=== PATIENT | female | born 1985 | race Caucasian/White ===

== ENCOUNTER → 2018-06-19 09:06 | Outpatient (CLI) | payer OTHER, SELFPAY ==
[2018-06-19 09:35] LABS: Absolute Lymphocyte Count 1.69 X10^3/ul (0.83-4.51); Absolute Neutrophil Count 6.2 X10^3/uL (2.0-7.7); Basophil# 0.01 X10^3/uL; Basophil% 0.1 % (0-1); Eosinophil# 0.03 X10^3/uL; Eosinophils% 0.4 % (0-5); Hematocrit 38.9 % (37-47); Hemoglobin 13.3 g/dl (12.0-15.0); Lymphocyte # 1.69 X10^3/ul (4.0); Lymphocyte % 19.8 % (19-41); Mean Corp Hgb Conc 34.2 g/gl (32-36); Mean Corpuscular Hgb 29.8 pg (27.0-32.0); Mean Corpuscular Volume 87.2 fL (81-99); Mean Platelet Vol. 10.1 fl (6.2-12.0); Monocyte# 0.57 X10^3/uL; Monocyte% 6.7 % (0-10); Neutrophil # 6.22 X10^3/uL (2.7-7.7); Neutrophil % 72.9 % (47-70); Platelet Count 258 K/mm3 (150-450); RBC Distribution Width CV 12.9 % (11.6-14.6); RBC Distribution Width SD 40.1 fl (35.1-43.9); Red Blood Count 4.46 M/mm3 (4.2-5.4); White Blood Count 8.5 K/mm3 (4.4-11.0)
[2018-06-19 09:36] LABS: POSITIVE COUNT NO; POSITIVE DIFFERENTIAL NO; POSITIVE MORPHOLOGY NO
[2018-06-19 10:00] LABS: Glucose Challenge Gest 1H 50g 103 mg/dL (70-140)
[2018-06-19 10:53] LABS: HIV - WCH Non-Reactive (Nonreactive)
[2018-06-19 19:59] LABS: Chlamydia Trachomatis by PCR Negative (Negative); Neisserai gonorrhoeae by PCR Negative (Negative); Probe Check PASS; Sample Adequacy Control PASS; Specimen Processing Control PASS
[2018-06-21 04:13] LABS: Rapid Plasmin Reagin (RPR) NONREACTIVE (NONREACTIVE)
[2018-06-21 15:14] LABS: HEPATITIS B SURFACE AG Negative (Negative)
== END ==
PROVIDERS: Family Provider Family Medicine; PCP Family Medicine; Referring Provider Obstetrics & Gynecology; Visit Provider Obstetrics & Gynecology
DX: Z34.90 Encounter for supervision of normal pregnancy, unspecified, unspecified trimester (principal)
CPT/HCPCS: 36415; 82950; 85025; 86592; 86703; 86762; 86850; 86900; 87086; 87088; 87340; 87491; 87591

== ENCOUNTER → 2018-09-09 18:08 | Outpatient (CLI) | payer OTHER, SELFPAY ==
[2018-09-09 15:42] VITALS: BMI 37.0
== END ==
PROVIDERS: Family Provider Family Medicine; Referring Provider Obstetrics & Gynecology; Visit Provider Obstetrics & Gynecology
DX: R30.0 Dysuria (principal)
CPT/HCPCS: 87086; 87088

== ENCOUNTER → 2018-11-08 16:30 | Outpatient (CLI) | payer OTHER, SELFPAY ==
[2018-11-08 16:09] VITALS: BMI 37.0
[2018-11-08 17:19] LABS: Absolute Lymphocyte Count 1.61 X10^3/ul (0.83-4.51); Absolute Neutrophil Count 6.3 X10^3/uL (2.0-7.7); Basophil# 0.01 X10^3/uL; Basophil% 0.1 % (0-1); Eosinophil# 0.03 X10^3/uL; Eosinophils% 0.4 % (0-5); Hematocrit 36.5 % (37-47); Hemoglobin 12.1 g/dl (12.0-15.0); Lymphocyte # 1.61 X10^3/ul (4.0); Lymphocyte % 18.9 % (19-41); Mean Corp Hgb Conc 33.2 g/gl (32-36); Mean Corpuscular Volume 90.6 fL (81-99); Mean Platelet Vol. 10.4 fl (6.2-12.0); Monocyte# 0.54 X10^3/uL; Monocyte% 6.3 % (0-10); Neutrophil # 6.32 X10^3/uL (2.7-7.7); Neutrophil % 74.2 % (47-70); POSITIVE COUNT NO; POSITIVE DIFFERENTIAL NO; POSITIVE MORPHOLOGY NO; Platelet Count 236 K/mm3 (150-450); RBC Distribution Width CV 13.4 % (11.6-14.6); RBC Distribution Width SD 43.7 fl (35.1-43.9); Red Blood Count 4.03 M/mm3 (4.2-5.4); White Blood Count 8.5 K/mm3 (4.4-11.0)
[2018-11-08 17:26] LABS: Glucose Challenge Gest 1H 50g 175 mg/dL (70-140)
== END ==
PROVIDERS: Family Provider Family Medicine; Referring Provider Nurse Practitioner Women's Health; Visit Provider Nurse Practitioner Women's Health
DX: O23.40 Unspecified infection of urinary tract in pregnancy, unspecified trimester (principal); O09.899 Supervision of other high risk pregnancies, unspecified trimester; O09.90 Supervision of high risk pregnancy, unspecified, unspecified trimester; Z3A.00 Weeks of gestation of pregnancy not specified; Z67.91 Unspecified blood type, Rh negative
CPT/HCPCS: 36415; 82950; 85025; 86850; 86900; 87086; 87088

== ENCOUNTER → 2018-11-15 06:43 | Outpatient (CLI) | payer OTHER, SELFPAY ==
[2018-11-08 16:23] VITALS: BMI 37.0
[2018-11-15 08:25] LABS: Glucose GTT-Gestational 1 Hr 167 mg/dL (<190)
[2018-11-15 08:26] LABS: Glucose GTT-Gestation. Fasting 89 mg/dL (<105)
[2018-11-15 09:35] LABS: Glucose GTT-Gestational 2 Hr 170 mg/dL (<165)
[2018-11-15 10:41] LABS: Glucose GTT-Gestational 3 Hr 124 L (<145)
== END ==
PROVIDERS: Family Provider Family Medicine; Referring Provider Nurse Practitioner Women's Health; Visit Provider Nurse Practitioner Women's Health
DX: O99.810 Abnormal glucose complicating pregnancy (principal); Z3A.00 Weeks of gestation of pregnancy not specified
CPT/HCPCS: 36415; 82951; 82952

== ENCOUNTER → 2018-11-28 16:26 | Outpatient (CLI) | payer OTHER, SELFPAY ==
[2018-11-28 16:09] VITALS: BMI 37.0
[2018-11-28 16:51] LABS: ROM Internal Control Test YES-OK TO RESULT pt. (Internal QC); ROM Patient Test Negative (Negative); Record Kit Lot#, ROM+ J7836
== END ==
PROVIDERS: Family Provider Family Medicine; Referring Provider Nurse Practitioner Women's Health; Visit Provider Nurse Practitioner Women's Health
DX: O09.90 Supervision of high risk pregnancy, unspecified, unspecified trimester (principal); O99.280 Endocrine, nutritional and metabolic diseases complicating pregnancy, unspecified trimester; E86.9 Volume depletion, unspecified; Z3A.00 Weeks of gestation of pregnancy not specified
CPT/HCPCS: 84112; 87086; 87088

== ENCOUNTER 2018-12-06 17:10 | Outpatient (CLI) | payer OTHER, SELFPAY ==
[2018-12-06 16:43] VITALS: BMI 37.0
[2018-12-06 17:27] LABS: Absolute Lymphocyte Count 2.05 X10^3/ul (0.83-4.51); Basophil# 0.01 X10^3/uL; Basophil% 0.1 % (0-1); Eosinophil# 0.05 X10^3/uL; Eosinophils% 0.5 % (0-5); Hematocrit 35.7 % (37-47); Hemoglobin 12.2 g/dl (12.0-15.0); Lymphocyte # 2.05 X10^3/ul (4.0); Lymphocyte % 20.7 % (19-41); Mean Corp Hgb Conc 34.2 g/gl (32-36); Mean Corpuscular Hgb 29.9 pg (27.0-32.0); Mean Corpuscular Volume 87.5 fL (81-99); Mean Platelet Vol. 11.5 fl (6.2-12.0); Monocyte# 0.79 X10^3/uL; Neutrophil # 6.99 X10^3/uL (2.7-7.7); Neutrophil % 70.4 % (47-70); POSITIVE COUNT NO; POSITIVE DIFFERENTIAL NO; POSITIVE MORPHOLOGY NO; Platelet Count 225 K/mm3 (150-450); RBC Distribution Width SD 40.6 fl (35.1-43.9); Red Blood Count 4.08 M/mm3 (4.2-5.4); White Blood Count 9.9 K/mm3 (4.4-11.0)
[2018-12-06 17:58] LABS: ALB/GLOB Ratio 0.7 RATIO (0.9-2.4); AST(SGOT) 22 U/L (15-37); Alanine Aminotransfer ALT/SGPT 16 U/L (13-56); Albumin, Serum 2.7 g/dL (3.2-5.0); Alkaline Phosphatase 149 U/L (45-117); Anion Gap 10 (5-15); BUN 10 mg/dL (7-18); BUN/Creat Ratio 16.3 RATIO (10-20); Calcium,Total 8.9 mg/dL (8.5-10.1); Chloride 106 mmol/L (98-107); Creatinine, Serum 0.61 mg/dL (0.55-1.02); EST Glomerular Filtration Rate 118 mL/min (>60); Est Glom Filt Rate - Afr Amer 142 mL/min (>60); Globulin 4.1 g/dL (2.2-4.2); Glucose 82 mg/dL (74-106); LDH 187 U/L (84-246); Protein, Total 6.8 g/dL (6.4-8.2); Sodium Level 138 mmol/L (136-145)
[2018-12-06 18:31] VITALS: BMI 41.4
[2018-12-06 18:45] LABS: Protein, Urine (Random) 12.1 mg/dL (<11.9); Protein:Creat Ratio 153 mg/g CRE (0-200)
--- NOTE | 2018-12-08 08:59 | OB.TRI.PN_ITS ---
Progress Notes Date of Service: 12/06/18 Progress Note: Present with elevated blood pressures in the office labs were sent which were normal and negative and NST was reactive. Initial blood pressure was mildly elevated but all repeats were within normal limits and patient is asymptomatic heart tones 130s moderate variability reactive no decelerations [place]: No regular contractions Assessment and plan elevated blood pressures?normal labs and repeat blood pressures within normal limits reactive NST DC home frequency or precautions follow-up in the office as an outpatient Laboratory Studies: Laboratory Tests 12/06/18 12/06/18 12/06/18 Range/Units 18:06 17:17 17:17 WBC 9.9 (4.4-11.0) K/mm3 RBC 4.08 L (4.2-5.4) M/mm3 Hgb 12.2 (12.0-15.0) g/dl Hct 35.7 L (37-47) % MCV 87.5 (81-99) fL MCH 29.9 (27.0-32.0) pg MCHC 34.2 (32-36) g/gl RDW 13.0 (11.6-14.6) % RDW Differential 40.6 (35.1-43.9) fl Plt Count 225 (150-450) K/mm3 MPV 11.5 (6.2-12.0) fl Immature Gran % (Auto) 0.300 (0.0-0.9) % Neut % (Auto) 70.4 H (47-70) % Lymph % (Auto) 20.7 (19-41) % [place] % (Auto) 8.0 (0-10) % Eos % (Auto) 0.5 (0-5) % Baso % (Auto) 0.1 (0-1) % Absolute Neuts (auto) 7.0 (2.0-7.7) X10^3/uL Absolute Lymphs (auto) 2.05 (0.83-4.51) X10^3/ul Total Counted Not Reportable Sodium 138 (136-145) mmol/L Potassium 4.0 (3.5-5.1) mmol/L Chloride 106 (98-107) mmol/L Carbon Dioxide 22.0 (21.0-32.0) mmol/L Anion Gap 10 (5-15) BUN 10 (7-18) mg/dL Creatinine 0.61 (0.55-1.02) mg/dL Est GFR (MDRD) Af Amer 142 (>60) mL/min Est GFR (MDRD) Non-Af 118 (>60) mL/min BUN/Creatinine Ratio 16.3 (10-20) RATIO Glucose 82 (74-106) mg/dL Uric Acid 4.0 (2.6-6.0) mg/dL Calcium 8.9 (8.5-10.1) mg/dL Total Bilirubin 0.30 (0.20-1.00) mg/dL AST 22 (15-37) U/L ALT 16 (13-56) U/L Alkaline Phosphatase 149 H (45-117) U/L Lactate Dehydrogenase 187 (84-246) U/L Total Protein 6.8 (6.4-8.2) g/dL Albumin 2.7 L (3.2-5.0) g/dL Globulin 4.1 (2.2-4.2) g/dL Albumin/Globulin Ratio 0.7 L (0.9-2.4) RATIO U Random Total Protein 12.1 H (<11.9) mg/dL Urine Creatinine 79.30 (NO RANGE EST.) mg/dL Protein/Creatinin Ratio 153 (0-200) mg/g CRE
== END 2018-12-06 19:30 | disposition home or self-care (01) ==
LOC: LAB 17:12 → WPOUT 18:08 → WP 18:09
PROVIDERS: Family Provider Family Medicine; Referring Provider Obstetrics & Gynecology; Visit Provider Obstetrics & Gynecology
DX: O16.9 Unspecified maternal hypertension, unspecified trimester (principal); Z3A.00 Weeks of gestation of pregnancy not specified
CPT/HCPCS: 36415; 59025; 59050; 80053; 82570; 83615; 84156; 84550; 85025; 99218; G0378

== ENCOUNTER 2018-12-19 16:55 | Outpatient (CLI) | payer OTHER, SELFPAY ==
[2018-12-19 16:26] VITALS: BMI 42.6
[2018-12-19 17:19] VITALS: BMI 41.8
[2018-12-19 17:23] LABS: Protein:Creat Ratio 460 mg/g CRE (0-200)
[2018-12-19] MEDS: Betamethasone/Betamethasone 30 MG/5 ML Vial 12 MG IM (17:32)
[2018-12-19] MEDS: Acetaminophen 500 MG Tablet 1000 MG PO (17:36)
[2018-12-19 17:47] LABS: Hematocrit 34.7 % (37-47); Hemoglobin 11.7 g/dl (12.0-15.0); Mean Corp Hgb Conc 33.7 g/gl (32-36); Mean Corpuscular Hgb 29.6 pg (27.0-32.0); Mean Corpuscular Volume 87.8 fL (81-99); Mean Platelet Vol. 11.7 fl (6.2-12.0); Platelet Count 203 K/mm3 (150-450); RBC Distribution Width CV 13.5 % (11.6-14.6); RBC Distribution Width SD 43.3 fl (35.1-43.9); Red Blood Count 3.95 M/mm3 (4.2-5.4); White Blood Count 8.8 K/mm3 (4.4-11.0)
[2018-12-19 17:48] LABS: Scan Indicated on CBC? Y/N NO
[2018-12-19 18:34] LABS: AST(SGOT) 22 U/L (15-37); Alanine Aminotransfer ALT/SGPT 18 U/L (13-56); Creatinine, Serum 0.61 mg/dL (0.55-1.02); EST Glomerular Filtration Rate 118 mL/min (>60); Est Glom Filt Rate - Afr Amer 143 mL/min (>60); Estimated Creatinine Clearance 101.81 ml/min; Uric Acid 4.5 mg/dL (2.6-6.0)
--- NOTE | 2018-12-19 18:36 | US_ITS ---
STUDY: SECOND AND THIRD TRIMESTER OBSTETRICAL ULTRASOUND - LIMITED REASON FOR EXAM: Female, 33 years old. Growth. Hypertension. LGA around 2 weeks. LMP: April 20, 2018. PRIOR ULTRASOUND: None. TECHNIQUE: Transabdominal TECHNICAL QUALITY: Adequate. FINDINGS: There is a single intrauterine fetus. The fetus is in a cephalic presentation. There is demonstrated cardiac activity with a heart rate of 165 bpm. There is a normal amniotic fluid volume. The largest amniotic fluid pocket measures 4.10 cm. The amniotic fluid index (SUKHWINDER) is 11.12 cm. The placenta is posterior in location and is not low lying. There are Grade 1 placental changes. The cervix measures 3.8 cm cm in length. BIOMETRY: BPD: 8.79 cm: 35 weeks, 4 days HC: 32.73 cm: 37 weeks, 2 days AC: 32.37: 36 weeks, 3 days FL: 6.77: 34 weeks, 6 days Age by LMP: 34 weeks, 5 days. MAGED by LMP: January 25, 2019. age by current US: 36 weeks, 1 days. MAGED by current US: January 15, 2019. Estimated weight: 2800 grams, +/- 409 grams, 80 percentile. US/OB Limited With Biometrics IMPRESSION: 1. Live single intrauterine at 36 weeks, 1 day. MAGED is January 15, 2019. 2. EFW of 2800 g. 3. SUKHWINDER of 11.12 cm. 4. Posterior grade 1 placenta. 5. Vertex presentation. Electronically Signed: Ortiz Alicea DO at 20:45 EDT Tel [phone], Service support ,
[2018-12-19] MEDS: Labetalol 100 MG Tablet PO (19:03)
--- NOTE | 2018-12-19 19:34 | PCM.HP.OB ---
History History of this : This is a 33 year-old, G [], P [], at weeks gestational age. Surgical History: Surgical History (Last Reviewed 12/19/18 @ 16:16 by Nimco Roman) delivery delivered O82 Allergies No Known Allergies Allergy (Verified 12/19/18 17:20) Home Medications: Home Medications vitamin,calcium,sjwxonsh-mhgm-jxbni acid tablet 1 tab PO DAILY 07/15/18 Acetaminophen [Tylenol] 650 mg PO PRN PRN 12/19/18 Smoking Status: Never smoker History Past Pregnancies: Past Pregnancies Delivery Date Name GA/Weeks Outcome Route Weight Gender Labor Length Anesthesia Delivery Location Provider FOB Assessment/Plan All Active Problems (Last Reviewed 12/19/18 @ 16:16 by Nimco Roman) Abnormal glucose affecting (Acute) UTI in (Acute) Rh negative status during (Acute) (Acute) Previous delivery affecting , antepartum (Acute) Supervision of high-risk (Acute) This is a 33 year-old, G [], P [], at weeks gestational age.
[2018-12-19] MEDS: DiphenhydrAMINE 50 MG/ML Syringe 25 MG IV (23:04)
[2018-12-20 00:17] LABS: Group B Strep DNA By PCR Negative (Negative); Internal Control PASS; Probe Check PASS; Specimen Processing Control PASS
[2018-12-20 07:06] LABS: Absolute Lymphocyte Count 1.15 X10^3/ul (0.83-4.51); Absolute Neutrophil Count 10.7 X10^3/uL (2.0-7.7); Basophil# 0.01 X10^3/uL; Basophil% 0.1 % (0-1); Hemoglobin 11.9 g/dl (12.0-15.0); Lymphocyte # 1.15 X10^3/ul (4.0); Lymphocyte % 9.3 % (19-41); Mean Corpuscular Hgb 29.8 pg (27.0-32.0); Mean Corpuscular Volume 87.7 fL (81-99); Mean Platelet Vol. 11.9 fl (6.2-12.0); Monocyte# 0.43 X10^3/uL; Monocyte% 3.5 % (0-10); Neutrophil # 10.69 X10^3/uL (2.7-7.7); Neutrophil % 86.9 % (47-70); POSITIVE COUNT NO; POSITIVE DIFFERENTIAL NO; POSITIVE MORPHOLOGY NO; Platelet Count 211 K/mm3 (150-450); RBC Distribution Width CV 13.7 % (11.6-14.6); RBC Distribution Width SD 43.3 fl (35.1-43.9); Red Blood Count 3.99 M/mm3 (4.2-5.4); White Blood Count 12.3 K/mm3 (4.4-11.0)
[2018-12-20 07:16] LABS: ALB/GLOB Ratio 0.6 RATIO (0.9-2.4); AST(SGOT) 21 U/L (15-37); Alanine Aminotransfer ALT/SGPT 17 U/L (13-56); Albumin, Serum 2.5 g/dL (3.2-5.0); Alkaline Phosphatase 162 U/L (45-117); Anion Gap 13 (5-15); BUN 11 mg/dL (7-18); BUN/Creat Ratio 16.7 RATIO (10-20); Calcium,Total 8.8 mg/dL (8.5-10.1); Chloride 106 mmol/L (98-107); Creatinine, Serum 0.66 mg/dL (0.55-1.02); EST Glomerular Filtration Rate 109 mL/min (>60); Est Glom Filt Rate - Afr Amer 131 mL/min (>60); Globulin 3.9 g/dL (2.2-4.2); Glucose 115 mg/dL (74-106); Potassium 4.2 mmol/L (3.5-5.1); Protein, Total 6.4 g/dL (6.4-8.2); Sodium Level 137 mmol/L (136-145)
--- NOTE | 2018-12-20 07:39 | PCM.PN.OB ---
Subjective: doing well - bps improved on the med, no gilliland bv no CP SOB - Physical Exam General: Alert, Oriented x3, Cooperative Abdomen: Soft, Non Tender Neurological: Deep Tendon Reflexes 2+/4 and Symmetrical - 3 rflexes, Clonus - none Weight: 232 lb 9.403 oz Body Mass Index (BMI) 41.8 Laboratory Tests Past 24 Hrs 12/19/18 12/19/18 12/19/18 17:04 17:25 17:25 WBC 8.8 RBC 3.95 L Hgb 11.7 L Hct 34.7 L MCV 87.8 MCH 29.6 MCHC 33.7 RDW 13.5 RDW Differential 43.3 Plt Count 203 MPV 11.7 Immature Gran % (Auto) Neut % (Auto) Lymph % (Auto) [place] % (Auto) Eos % (Auto) Baso % (Auto) Absolute Neuts (auto) Absolute Lymphs (auto) Total Counted Sodium Potassium Chloride Carbon Dioxide Anion Gap BUN Creatinine 0.61 Estim Creat Clear Calc 101.81 Est GFR (MDRD) Af Amer 143 Est GFR (MDRD) Non-Af 118 BUN/Creatinine Ratio Glucose Uric Acid 4.5 Calcium Total Bilirubin AST 22 ALT 18 Alkaline Phosphatase Total Protein Albumin Globulin Albumin/Globulin Ratio U Random Total Protein 49.0 H Urine Creatinine 105.00 Protein/Creatinin Ratio 460 H Group B Strep DNA Specimen Comment 12/19/18 12/20/18 12/20/18 23:00 06:20 06:20 WBC 12.3 H RBC 3.99 L Hgb 11.9 L Hct 35.0 L MCV 87.7 MCH 29.8 MCHC 34.0 RDW 13.7 RDW Differential 43.3 Plt Count 211 MPV 11.9 Immature Gran % (Auto) 0.200 Neut % (Auto) 86.9 H Lymph % (Auto) 9.3 L [place] % (Auto) 3.5 Eos % (Auto) 0.0 Baso % (Auto) 0.1 Absolute Neuts (auto) 10.7 H Absolute Lymphs (auto) 1.15 Total Counted Not Reportable Sodium 137 Potassium 4.2 Chloride 106 Carbon Dioxide 18.0 L Anion Gap 13 BUN 11 Creatinine 0.66 Estim Creat Clear Calc 94.10 Est GFR (MDRD) Af Amer 131 Est GFR (MDRD) Non-Af 109 BUN/Creatinine Ratio 16.7 Glucose 115 H Uric Acid Calcium 8.8 Total Bilirubin 0.30 AST 21 ALT 17 Alkaline Phosphatase 162 H Total Protein 6.4 Albumin 2.5 L Globulin 3.9 Albumin/Globulin Ratio 0.6 L U Random Total Protein Urine Creatinine Protein/Creatinin Ratio Group B Strep DNA Negative Specimen Comment Not Reportable Medical Necessity - Tobacco Use Smoking Status: Never smoker Assessment/Plan All Active Problems (Last Reviewed 12/19/18 @ 16:16 by Nimco Roman) Abnormal glucose affecting (Acute) UTI in (Acute) Rh negative status during (Acute) (Acute) Previous delivery affecting , antepartum (Acute) Supervision of high-risk (Acute) This is a 33 year-old, at 34 weeks gestational age presents with preeclampsia 1. preeclampsia with mild features- started on labetalol 100mg BID. asymptomatic now and improved bps overnight. labs normal, 24 hour urine pending. 2. prematurity- [place] 3. previous - plan repeat at 37 weeks dc home after second dose of steroid. preeclampsia precautions.
--- NOTE | 2018-12-20 07:43 | PCM.DC ---
- Discharge Diagnoses Reason(s) for Visit for Discharge Instructions: preeclampsia You will use the following diet at home:: Regular Your food should be the consistency of: Regular Discharge Activity: Return to Normal Activity, - - rest often May resume sexual activity in: No Restrictions Call your doctor if you observe: Fever of 101 or Higher, Shortness of breath, Chest pain, - - headache, blurry vision, upper abdominal pain, regular contractions, decreased movement Instructions: Discharge Instructions for High Blood Pressure (Hypertension), Discharge Instructions: Taking Your Blood Pressure Additional Instructions: call doctor if systolic blood pressure greater than 160 or diastolic greater than 110. take your blood pressure twice daily and write it down to bring in for your doctor. Allergies/Adverse Reactions: Allergies No Known Allergies Allergy (Verified 12/19/18 17:20) Medications to take at Discharge vitamin,calcium,jkdfjsdp-tbsc-zyywp acid tablet 1 tab PO DAILY 07/15/18 Acetaminophen [Tylenol] 650 mg PO PRN PRN 12/19/18 Primary Care Physician: Tray Cox [Primary Care Provider] - Test Results: Test results from this visit will be discussed in further detail at your follow-up appointment, if applicable. Please Follow Up With: Maite Schultz MD - twice weekly until delivery
--- NOTE | 2018-12-20 07:46 | DCINST_ITS ---
- Discharge Diagnoses Reason(s) for Visit for Discharge Instructions: preeclampsia You will use the following diet at home:: Regular Your food should be the consistency of: Regular Discharge Activity: Return to Normal Activity, - - rest often May resume sexual activity in: No Restrictions Call your doctor if you observe: Fever of 101 or Higher, Shortness of breath, Chest pain, - - headache, blurry vision, upper abdominal pain, regular contractions, decreased movement Instructions: Discharge Instructions for High Blood Pressure (Hypertension), Discharge Instructions: Taking Your Blood Pressure Additional Instructions: call doctor if systolic blood pressure greater than 160 or diastolic greater than 110. take your blood pressure twice daily and write it down to bring in for your doctor. Allergies/Adverse Reactions: Allergies No Known Allergies Allergy (Verified 12/19/18 17:20) Medications to take at Discharge vitamin,calcium,txdsasrm-ecou-yswsi acid tablet 1 tab PO DAILY 07/15/18 Acetaminophen [Tylenol] 650 mg PO PRN PRN 12/19/18 Primary Care Physician: Tray Cox [Primary Care Provider] - Test Results: Test results from this visit will be discussed in further detail at your follow- up appointment, if applicable. Please Follow Up With: Maite Schultz MD - twice weekly until delivery
[2018-12-20] MEDS: Labetalol 100 MG Tablet PO (10:55)
[2018-12-20] MEDS: Acetaminophen 325 MG Tablet 650 MG PO (10:59)
[2018-12-20] MEDS: Prenatal Vits Tablet 1 TABLET PO (11:56)
[2018-12-20] MEDS: Betamethasone/Betamethasone 30 MG/5 ML Vial 12 MG IM (17:25)
[2018-12-20 19:54] LABS: Creat.Clear Total Volume 925 mL; Creatinine Clearance 164 ml/min (100-200); Creatinine Serum Creat 0.7 mg/dL (0.6-1.0); EST Glomerular Filtration Rate 108 mL/min (>60); Est Glom Filt Rate - Afr Amer 131 mL/min (>60)
[2018-12-20 20:51] LABS: 24 Hour Urine Protein 705.8 mg/24HR (<150 MG/24HR); 24HR. UA Prot. Total Volume 925 mL; Urine Protein (24 Hour) 76.3 mg/dL (<11.9)
== END 2018-12-20 19:00 | disposition home or self-care (01) ==
LOC: LABSPEC 16:57 → WPOUT 16:58 → WP 16:59
PROVIDERS: Family Provider Family Medicine; Referring Provider Obstetrics & Gynecology; Visit Provider Obstetrics & Gynecology
DX: O14.03 Mild to moderate pre-eclampsia, third trimester (principal); O60.03 Preterm labor without delivery, third trimester; O09.523 Supervision of elderly multigravida, third trimester; O99.810 Abnormal glucose complicating pregnancy; O36.0130 Maternal care for anti-D [Rh] antibodies, third trimester, not applicable or unspecified; Z3A.29 29 weeks gestation of pregnancy
CPT/HCPCS: 96372; 96374; 36415; 59025; 59050; 76816; 80053; 82565; 82570; 82575; 84156; 84450; 84460; 84550; 85025; 85027; 87081; 87653; 99218; G0378; J0702

== ENCOUNTER 2018-12-25 12:17 | Observation (INO) | payer OTHER, SELFPAY ==
[2018-12-24 08:08] VITALS: BMI 41.8
[2018-12-24 08:48] VITALS: BMI 42.1
[2018-12-24 08:55] LABS: Protein, Urine (Random) 147.5 mg/dL (<11.9); Protein:Creat Ratio 1300 mg/g CRE (0-200)
[2018-12-24 09:19] LABS: Hematocrit 33.1 % (37-47); Mean Corp Hgb Conc 33.2 g/gl (32-36); Mean Corpuscular Hgb 29.4 pg (27.0-32.0); Mean Corpuscular Volume 88.5 fL (81-99); Mean Platelet Vol. 12.6 fl (6.2-12.0); Platelet Count 177 K/mm3 (150-450); RBC Distribution Width CV 13.7 % (11.6-14.6); RBC Distribution Width SD 42.2 fl (35.1-43.9); Red Blood Count 3.74 M/mm3 (4.2-5.4); White Blood Count 8.3 K/mm3 (4.4-11.0)
[2018-12-24 09:23] LABS: Scan Indicated on CBC? Y/N NO
[2018-12-24 09:27] LABS: Partial Thromboplast Time 22.5 Seconds (24.1-36.2)
[2018-12-24 09:33] LABS: AST(SGOT) 24 U/L (15-37); Alanine Aminotransfer ALT/SGPT 20 U/L (13-56); Creatinine, Serum 0.67 mg/dL (0.55-1.02); EST Glomerular Filtration Rate 106 mL/min (>60); Est Glom Filt Rate - Afr Amer 128 mL/min (>60); Estimated Creatinine Clearance 92.69 ml/min; Uric Acid 5.6 mg/dL (2.6-6.0)
[2018-12-24] MEDS: Labetalol 100 MG Tablet PO (11:24)
--- NOTE | 2018-12-24 18:49 | OB.TRI.NOTE ---
History of Present Illness Date of Service: 12/24/18 Was patient seen by the physician?: Yes Reason For Visit: INCREASED BP Date of Service: 12/24/18 Final MAGED: 01/28/19 Gestational age: 35 Weeks and 0 Days History of Present Illness: 33 yo [id number] female with h/o two prior C section deliveries Dx 5 d ago with mild preeclampsia and started on labetalol. Betamethasone given at the 12/19/18 admission. 24 hr urine then showed 706 mg/24 hr proteinuria. Sent home. Returned to [facility] today for visit and NST with Savannah Moore and BP again noted to be elevated. Repeat [facility] labs ordered and patient sent in for observation. Pro/Cr ratio elevated at 1300. Denies any MARTINEZ, RUQ pain. Feeling well. Just resting at time of my visit. Allergies No Known Allergies Allergy (Verified 12/24/18 08:05) - Pertinent Past Medical History Surgical History: Past Surgical History (Last Reviewed 12/24/18 @ 08:05 by Lorraine Patrick) delivery delivered Laboratory Studies: Laboratory Tests 12/24/18 12/24/18 12/24/18 Range/Units 09:05 09:05 09:05 WBC 8.3 (4.4-11.0) K/mm3 RBC 3.74 L (4.2-5.4) M/mm3 Hgb 11.0 L (12.0-15.0) g/dl Hct 33.1 L (37-47) % MCV 88.5 (81-99) fL MCH 29.4 (27.0-32.0) pg MCHC 33.2 (32-36) g/gl RDW 13.7 (11.6-14.6) % RDW Differential 42.2 (35.1-43.9) fl Plt Count 177 (150-450) K/mm3 MPV 12.6 H (6.2-12.0) fl PT 13.0 (11.7-14.9) SECONDS INR 1.0 APTT 22.5 L (24.1-36.2) Seconds Creatinine 0.67 (0.55-1.02) mg/dL Estim Creat Clear Calc 92.69 ml/min Est GFR (MDRD) Af Amer 128 (>60) mL/min Est GFR (MDRD) Non-Af 106 (>60) mL/min Uric Acid 5.6 (2.6-6.0) mg/dL AST 24 (15-37) U/L ALT 20 (13-56) U/L U Random Total Protein (<11.9) mg/dL Urine Creatinine (NO RANGE EST.) mg/dL Protein/Creatinin Ratio (0-200) mg/g CRE 12/24/18 Range/Units 08:39 WBC (4.4-11.0) K/mm3 RBC (4.2-5.4) M/mm3 Hgb (12.0-15.0) g/dl Hct (37-47) % MCV (81-99) fL MCH (27.0-32.0) pg MCHC (32-36) g/gl RDW (11.6-14.6) % RDW Differential (35.1-43.9) fl Plt Count (150-450) K/mm3 MPV (6.2-12.0) fl PT (11.7-14.9) SECONDS INR APTT (24.1-36.2) Seconds Creatinine (0.55-1.02) mg/dL Estim Creat Clear Calc ml/min Est GFR (MDRD) Af Amer (>60) mL/min Est GFR (MDRD) Non-Af (>60) mL/min Uric Acid (2.6-6.0) mg/dL AST (15-37) U/L ALT (13-56) U/L U Random Total Protein 147.5 H (<11.9) mg/dL Urine Creatinine 113.00 (NO RANGE EST.) mg/dL Protein/Creatinin Ratio 1300 H (0-200) mg/g CRE Review of Systems Constitutional: Denies: Anorexia Eyes: Denies: Blurred vision Cardiovascular: Reports: Edema Respiratory: Denies: Shortness of Breath Gastrointestinal: Denies: Abdominal Pain Neurological: Denies: Blurred vision, Double vision, Headaches - denies current MARTINEZ, visual changes, no RUQ pain Physical Exam Vitals: 151/90, 144/93, 139/91, 138/87, 147/91 General: Alert, Oriented x3, Cooperative, No apparent distress HEENT: Atraumatic, EOMI Abdomen: Gravid Neurological: Cranial nerves II-XII grossly intact NST - FHR Rate Baby A Baseline: 140-150s avg with accels to 170s. sleep cycles noted Variability:: Moderate Accelerations:: 15 x 15 Decelerations:: None NST Reactive:: Yes, Appropriate for gestational age FHR Category:: Category I Uterine Activity:: Irregular UCs noted. Impression/Plan 33 yo [id number] female at 35 wks with HTN, preeclampsia. Asx at present other than edema. Elevated spot protein and Pro/Cr ratio S/P betamethasone 5 d ago when admitted then for PIH, preeclampsia Plan repeat 24 hr urine. Bedrest with BRP. NST q shift. Serial BPs. Prior 34 wk delivery and 36 wk delivery. Plan for repeat C/S and BPS with timing of delivery dependent on evolving severity of preeclampsia Reviewed plan with patient.
--- NOTE | 2018-12-24 18:55 | OB.TRI.HP_ITS ---
History of Present Illness Date of Service: 12/24/18 Was patient seen by the physician?: Yes Reason For Visit: INCREASED BP Date of Service: 12/24/18 Final MAGED: 01/28/19 Gestational age: 35 Weeks and 0 Days History of Present Illness: 33 yo [id number] female with h/o two prior C section deliveries Dx 5 d ago with mild preeclampsia and started on labetalol. Betamethasone given at the 12/19/18 admission. 24 hr urine then showed 706 mg/24 hr proteinuria. Sent home. Returned to [facility] today for visit and NST with Savannah Moore and BP again noted to be elevated. Repeat [facility] labs ordered and patient sent in for observation. Pro/Cr ratio elevated at 1300. Denies any MARTINEZ, RUQ pain. Feeling well. Just resting at time of my visit. Allergies No Known Allergies Allergy (Verified 12/24/18 08:05) - Pertinent Past Medical History Surgical History: Past Surgical History (Last Reviewed 12/24/18 @ 08:05 by Lorraine Patrick) delivery delivered Laboratory Studies: Laboratory Tests 12/24/18 12/24/18 12/24/18 Range/Units 09:05 09:05 09:05 WBC 8.3 (4.4-11.0) K/mm3 RBC 3.74 L (4.2-5.4) M/mm3 Hgb 11.0 L (12.0-15.0) g/dl Hct 33.1 L (37-47) % MCV 88.5 (81-99) fL MCH 29.4 (27.0-32.0) pg MCHC 33.2 (32-36) g/gl RDW 13.7 (11.6-14.6) % RDW Differential 42.2 (35.1-43.9) fl Plt Count 177 (150-450) K/mm3 MPV 12.6 H (6.2-12.0) fl PT 13.0 (11.7-14.9) SECONDS INR 1.0 APTT 22.5 L (24.1-36.2) Seconds Creatinine 0.67 (0.55-1.02) mg/dL Estim Creat Clear Calc 92.69 ml/min Est GFR (MDRD) Af Amer 128 (>60) mL/min Est GFR (MDRD) Non-Af 106 (>60) mL/min Uric Acid 5.6 (2.6-6.0) mg/dL AST 24 (15-37) U/L ALT 20 (13-56) U/L U Random Total Protein (<11.9) mg/dL Urine Creatinine (NO RANGE EST.) mg/dL Protein/Creatinin Ratio (0-200) mg/g CRE 12/24/18 Range/Units 08:39 WBC (4.4-11.0) K/mm3 RBC (4.2-5.4) M/mm3 Hgb (12.0-15.0) g/dl Hct (37-47) % MCV (81-99) fL MCH (27.0-32.0) pg MCHC (32-36) g/gl RDW (11.6-14.6) % RDW Differential (35.1-43.9) fl Plt Count (150-450) K/mm3 MPV (6.2-12.0) fl PT (11.7-14.9) SECONDS INR APTT (24.1-36.2) Seconds Creatinine (0.55-1.02) mg/dL Estim Creat Clear Calc ml/min Est GFR (MDRD) Af Amer (>60) mL/min Est GFR (MDRD) Non-Af (>60) mL/min Uric Acid (2.6-6.0) mg/dL AST (15-37) U/L ALT (13-56) U/L U Random Total Protein 147.5 H (<11.9) mg/dL Urine Creatinine 113.00 (NO RANGE EST.) mg/dL Protein/Creatinin Ratio 1300 H (0-200) mg/g CRE Review of Systems Constitutional: Denies: Anorexia Eyes: Denies: Blurred vision Cardiovascular: Reports: Edema Respiratory: Denies: Shortness of Breath Gastrointestinal: Denies: Abdominal Pain Neurological: Denies: Blurred vision, Double vision, Headaches - denies current MARTINEZ, visual changes, no RUQ pain Physical Exam Vitals: 151/90, 144/93, 139/91, 138/87, 147/91 General: Alert, Oriented x3, Cooperative, No apparent distress HEENT: Atraumatic, EOMI Abdomen: Gravid Neurological: Cranial nerves II-XII grossly intact NST - FHR Rate Baby A Baseline: 140-150s avg with accels to 170s. sleep cycles noted Variability:: Moderate Accelerations:: 15 x 15 Decelerations:: None NST Reactive:: Yes, Appropriate for gestational age FHR Category:: Category I Uterine Activity:: Irregular UCs noted. Impression/Plan 33 yo [id number] female at 35 wks with HTN, preeclampsia. Asx at present other than edema. Elevated spot protein and Pro/Cr ratio S/P betamethasone 5 d ago when admitted then for PIH, preeclampsia Plan repeat 24 hr urine. Bedrest with BRP. NST q shift. Serial BPs. Prior 34 wk delivery and 36 wk delivery. Plan for repeat C/S and BPS with timing of delivery dependent on evolving severity of preeclampsia Reviewed plan with patient.
--- NOTE | 2018-12-24 20:05 | PCM.PN.BLA ---
Progress Note PROGRESS NOTE Feeling OK. No MARTINEZ, No RUQ pain. Has questions re 24 hr urine prior results, today's labs and plan for care from here. Reviewed all All equestions answered to her and 's satisfaction. Plan to stay overnight to complete 24 hr urine NST reassuring. Irregular UCs noted (feeling some, but not very regularly) A/P: 35 wk PIH, preeclampsia. Will inc Labetalol to 200 mg po bid and continue hospital observation , pending 24 hr urine results. Goal to get to 37 wks. Prior C/S for bleeding placenta previa at 34 wks, then Emergency C/S at 36 wk for FHR in 20s. Plans repeat C/S and BPS.
[2018-12-24] MEDS: Labetalol 200 MG Tablet PO (22:17)
[2018-12-25] MEDS: Acetaminophen 500 MG Tablet PO ×3 (07:02→23:16)
[2018-12-25] MEDS: Labetalol 200 MG Tablet PO ×2 (10:43→22:02)
[2018-12-25 11:14] LABS: 24 Hour Urine Protein 3183.8 mg/24HR (<150 MG/24HR); 24HR. UA Prot. Total Volume 4025 mL; Urine Protein (24 Hour) 79.1 mg/dL (<11.9)
--- NOTE | 2018-12-25 12:17 | PCM.PN.BLA ---
Progress Note PROGRESS NOTE pt sleeping when I checked in on her earlier Now awake and with CC of bitemporal MARTINEZ 12/04. Took tylenol this am... and MARTINEZ improved then for a while. AFEB BPs: EFM reassuring 24 hr urine inc from approx 705mg / 24 hr to 3184 mg/24 hr in last 6 d. All other PIH bloodwork WNL A/P: 35 1/7 wk female with preeclampsia, worsening. Betamethasone given last week, 6 d ago. Reviewed case with Dr. Shruti Cueva at [facility]. Recommended continued observation with goal to deliver at 37 wks. Pain med for MARTINEZ and if MARTINEZ controlled, resolved with this continue observation with goal. to deliver at 37 wks EGA. IF unresolved, worsening MARTINEZ then delivery sooner prn. Called to [facility] and talked with nurse, Kasandra. MARTINEZ is not occipital. Offered Tylenol (but due next at apprx 1500). May try bitemporal massage for possible tension MARTINEZ. Claritin 10 mg po x one (in case MARTINEZ allergy related)
[2018-12-25] MEDS: Loratadine 10 MG Tablet PO (13:17)
[2018-12-25] MEDS: 0.9% Saline Lock 10 ML Syringe IV ×2 (15:14→22:02)
[2018-12-25 17:45] VITALS: BP 142/82; PULSE 81
[2018-12-25] MEDS: hydrALAZINE 10 MG Tablet PO (17:45)
[2018-12-26 06:04] VITALS: BP 136/83; PULSE 72
[2018-12-26] MEDS: hydrALAZINE 10 MG Tablet PO (06:04)
--- NOTE | 2018-12-26 09:52 | PCM.DC ---
- Discharge Diagnoses Current Active Problems: Preeclampsia 35 wk You will use the following diet at home:: No restrictions Discharge Activity: - - Bedrest, bathroom. Back and forth to couch, bed and keep legs elevated as much as possible. May resume sexual activity in: 4-6 weeks Call your doctor if you observe: - - Call in or return to hospital for evaluation IF: uncontrolled heartburn. Pain in upper right abdomen. Increased edema. Headache not controlled with claritin, tylenol. Come in for evaluation if decreased movement or regular painful contractions, vaginal bleeding. Allergies/Adverse Reactions: Allergies No Known Allergies Allergy (Verified 12/24/18 08:05) Medications to take at Discharge vitamin,calcium,almpivxg-abmw-ymxrd acid tablet 1 tab PO DAILY 07/15/18 Acetaminophen [Tylenol] 650 mg PO PRN PRN 12/19/18 blood pressure monitor kit See Dose Instructions .ROUTE .MEDSUPPLY #1 ea 12/20/18 Acetaminophen [Tylenol] 500 - 1,000 mg PO Q8H PRN tablet 12/26/18 Labetalol [Trandate (Beta Eliud)] 200 mg PO BID #60 tablet 12/26/18 Loratadine [Claritin] 10 mg PO DAILY tablet 12/26/18 hydrALAZINE [Apresoline] 10 mg PO 0600,1800 #60 tablet 12/26/18 The following prescriptions were given: hydrALAZINE [Apresoline] 10 mg PO 0600,1800 #60 tablet Labetalol [Trandate (Beta Eliud)] 200 mg PO BID #60 tablet Primary Care Physician: Tray Cox [Primary Care Provider] - Test Results: Test results from this visit will be discussed in further detail at your follow-up appointment, if applicable. Please Follow Up With: Maite Schultz MD When: December Proposed Discharge Date: 12/26/18
--- NOTE | 2018-12-26 09:57 | DCINST_ITS ---
- Discharge Diagnoses Current Active Problems: Preeclampsia 35 wk You will use the following diet at home:: No restrictions Discharge Activity: - - Bedrest, bathroom. Back and forth to couch, bed and keep legs elevated as much as possible. May resume sexual activity in: 4-6 weeks Call your doctor if you observe: - - Call in or return to hospital for evaluation IF: uncontrolled heartburn. Pain in upper right abdomen. Increased edema. Headache not controlled with claritin, tylenol. Come in for evaluation if decreased movement or regular painful contractions, vaginal bleeding. Allergies/Adverse Reactions: Allergies No Known Allergies Allergy (Verified 12/24/18 08:05) Medications to take at Discharge vitamin,calcium,vkvyitru-bwwt-xjckn acid tablet 1 tab PO DAILY 07/15/18 Acetaminophen [Tylenol] 650 mg PO PRN PRN 12/19/18 blood pressure monitor kit See Dose Instructions .ROUTE .MEDSUPPLY #1 ea 12/20/18 Acetaminophen [Tylenol] 500 - 1,000 mg PO Q8H PRN tablet 12/26/18 Labetalol [Trandate (Beta Eliud)] 200 mg PO BID #60 tablet 12/26/18 Loratadine [Claritin] 10 mg PO DAILY tablet 12/26/18 hydrALAZINE [Apresoline] 10 mg PO 0600,1800 #60 tablet 12/26/18 The following prescriptions were given: hydrALAZINE [Apresoline] 10 mg PO 0600,1800 #60 tablet Labetalol [Trandate (Beta Eliud)] 200 mg PO BID #60 tablet Primary Care Physician: Tray Cox [Primary Care Provider] - Test Results: Test results from this visit will be discussed in further detail at your follow- up appointment, if applicable. Please Follow Up With: Maite Schultz MD When: December Proposed Discharge Date: 12/26/18
[2018-12-26] MEDS: Loratadine 10 MG Tablet PO (10:14)
[2018-12-26] MEDS: Labetalol 200 MG Tablet PO (10:14)
[2018-12-26] MEDS: Acetaminophen 500 MG Tablet PO (10:15)
[2018-12-26] MEDS: 0.9% Saline Lock 10 ML Syringe IV (10:15)
[2018-12-26 11:23] VITALS: BP 112/68; PULSE 92; RESP 16; TEMP 36.9
--- NOTE | 2018-12-26 12:47 | PCM.PN.BLA ---
Progress Note 35 2/7 wk female with preeclampsia Currently denies any MARTINEZ or PIH sx. Edema has improved slightly now that she is on bedrest (had not been at bedrest at home prior to this admission). She is doing OK. Some cramping but nothing regular. Prior C/S deliveries at 34 and 36 wks and will monitor for s/sx of labor. States feeling lightheaded, dizzy, flushed after the Labetalol dose and is hoping to stay until after the Labetalol this am prior to going home BPs: 130/80's to 140s/90s Last BP on chart 135/86 GEN: A and O, NAD Abdomen: soft gravid, NT EXT: 1+ edema. worse on R ankle than left (improved since yesterday) EFM reactive NST with irregular UCs/ irritability A/P: 35 2/7 wk EGA . Preeclampsia. Worsening of proteinuria. BPs improved now at bedrest and with Labetalol 200 mg po bid and hydralazine 10 mg po bid. Plan of care per MFM discussion 12/25/18 is delivery at 37 wks. C/S then with bilateral tubal ligation. Home to continue bedrest, antihypertensives return if inc s/sx of preeclampsia or if UCs or dec movement. RTO to see Dr Schultz on MON 12/30/18 for PNV, NST or BPP. Possible repeat PIH labs then.
--- NOTE | 2018-12-26 12:55 | PCM.DC.SUM ---
Discharge Date and Diagnosis Date of Admission: 12/24/18 - 35 wk Preeclampsia Date of Discharge: 12/26/18 - 35 2/7 wk preeclampsia Hospital Course and Treatment Operations: None Procedures: None Summary of Care Provided: The patient is a 33 year [id number] female at [address] Schultz office for elevated BPs. She was dx with mild preeclampsia and was in hospital for observation , bedrest and was given steroids last week. She has not been at bedrest at home. She was readmitted for worsening HTN, preeclampsia. and for repeat PIH labs. BPs initially high on Labetalol 100 mg po bid 160s/90s or higher 24 hr urine repeated with significant inc in proteinuria : 706 mg on 12/19/18 to 3184 mg/24 12/25/18 MARTINEZ but bitemporal and controlled with claritin and tylenol. Antihypertensive meds given: Labetalol dose increased to 200 mg po bid Discussed case with MFM and recommend continued bedrest, with delivery ONLY if severe preeclampsia, MARTINEZ unrelieved by medications. Hydralazine 10 mg po bid added. Edema improved with bedrest. BPs improved with inc dose of the Labetalol 200 mg po bid and Hydralazine 10 mg po bid. Pt home on bedrest. To follow up with Dr Schultz on 12/30/18 for NST possible repeat PIH labs then. Plan for delivery at 37 wk if remains stable until then. Pt aware of the plan. - Physical Exam Vital Signs Temp Pulse Resp BP 98.4 F 92 16 112/68 12/26/18 11:23 12/26/18 11:23 12/26/18 11:23 12/26/18 11:23 Oxygen Delivery Method Room Air Weight: 106.141 kg Body Mass Index (BMI) 42.1 Intake and Output for Last 24 Hours 12/24/18 12/25/18 12/26/18 23:59 23:59 23:59 Intake Total 350 / 350 Output Total 1500 / 1500 Balance -1150 / -1150 Discharge Activity: - - Bedrest, bathroom. Back and forth to couch, bed and keep legs elevated as much as possible. May resume sexual activity in: 4-6 weeks Call your doctor if you observe: - - Call in or return to hospital for evaluation IF: uncontrolled heartburn. Pain in upper right abdomen. Increased edema. Headache not controlled with claritin, tylenol. Come in for evaluation if decreased movement or regular painful contractions, vaginal bleeding. Home Medications: Medications to take at Discharge vitamin,calcium,eohhiphi-qyau-utgwv acid tablet 1 tab PO DAILY 07/15/18 Acetaminophen [Tylenol] 650 mg PO PRN PRN 12/19/18 blood pressure monitor kit See Dose Instructions .ROUTE .MEDSUPPLY #1 ea 12/20/18 Acetaminophen [Tylenol] 500 - 1,000 mg PO Q8H PRN tablet 12/26/18 Labetalol [Trandate (Beta Eliud)] 200 mg PO BID #60 tablet 12/26/18 Loratadine [Claritin] 10 mg PO DAILY tablet 12/26/18 hydrALAZINE [Apresoline] 10 mg PO 0600,1800 #60 tablet 12/26/18 Following Prescrptions Were Given to Patient: hydrALAZINE [Apresoline] 10 mg PO 0600,1800 #60 tablet Labetalol [Trandate (Beta Eliud)] 200 mg PO BID #60 tablet Primary Care Physician: Tray Cox [Primary Care Provider] - Please Follow Up With: Maite Schultz MD When: SUNDAY, Jan 01 2019 Medical Necessity - Tobacco Use Smoking Status: Never smoker Meaningful Use Info Meaningful Use Diagnoses (Choose all that apply): None applicable
--- NOTE | 2019-01-01 15:58 | PCM.HPOB.BLA ---
History and Physical Date of Admission: 12/24/18 - PIH vs preeclampsia 33 yo [id number] female with h/o C section deliveries presents from office for observation due to HTN at 35 07 wk EGA She is planning repeat C/S and BTO. She was recently diagnosed with PIH and started on Labetaolol 100 mg po bid 4-5 days prior to this admission. 24 hr urine on 12/19/18: 706 mg/24 hr. She relates she has not been at bedrest, has some swelling and a headache. BPs elevated in the office and at admission PIH labs drawn including spot urine for Prot/Cr ratio Plts 177,000 Cr 0.67 Uric acid 5.6 LFTs wnl 3+ proteinuria and Pro/Cr ratio 1300 care A negative Rubella immune -- Started at 8 wk. -- Complicated by elevated 1 hr glucola but 3 hr GTT WNL (one value only abn) POB: Delivered C/S at 34 wk due to bleeding placenta previa. Baby had time in NICU Delivered C/S at 36 wk due to FHR in 20s. 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 PMH: Noncontributory PSH: C section deliveries. Allergies: NKDA Medications: PNV Labetalol 100 mg po bid
--- NOTE | 2019-01-01 16:08 | PCM.HP.OB ---
History Date of Admission: 12/24/18 - PIH vs preeclampsia Final MAGED: 01/28/19 Final MAGED Source: US <20 weeks Gestational age: 35 0/7 wk History of this : 33 yo [id number] female with h/o C section deliveries presents from office for observation due to HTN at 35 07 wk EGA She is planning repeat C/S and BTO. She was recently diagnosed with PIH and started on Labetaolol 100 mg po bid 4-5 days prior to this admission. She received betamethasone for anticipated delivery at last visit 4-5 d prior to this. 24 hr urine on 12/19/18: 706 mg/24 hr. She relates she has not been at bedrest, has some swelling and a headache. BPs elevated in the office and at admission PIH labs drawn including spot urine for Prot/Cr ratio Plts 177,000 Cr 0.67 Uric acid 5.6 LFTs wnl 3+ proteinuria and Pro/Cr ratio 1300 care A negative Rubella immune -- Started at 8 wk. -- Complicated by elevated 1 hr glucola but 3 hr GTT WNL (one value only abn) POB: Delivered C/S at 34 wk due to bleeding placenta previa. Baby had time in NICU Delivered C/S at 36 wk due to FHR in 20s. 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 PMH: Noncontributory PSH: C section deliveries. Allergies: NKDA Medications: PNV Labetalol 100 mg po bid Surgical History: Surgical History (Last Reviewed 12/30/18 @ 09:00 by Nimco Roman) delivery delivered O82 Allergies No Known Allergies Allergy (Verified 12/30/18 08:59) Home Medications: Home Medications vitamin,calcium,vpcfjycf-yvux-aiais acid tablet 1 tab PO DAILY 07/15/18 blood pressure monitor kit See Dose Instructions .ROUTE .MEDSUPPLY #1 ea 12/20/18 Acetaminophen [Tylenol] 1,000 mg PO Q8H PRN 12/28/18 Guaifenesin/Dextromethorphan [Mucinex Dm ER 600-30 mg Tablet] 1 ea PO Q12H PRN PRN 12/28/18 Labetalol [Trandate (Beta Eliud)] 200 mg PO BID 12/28/18 hydrALAZINE [Apresoline] 10 mg PO 0600,1800 12/28/18 Smoking Status: Never smoker History Past Pregnancies: Past Pregnancies Delivery Date Name GA/Weeks Outcome Route Weight Infant Gender Labor Length Anesthesia Delivery Location Provider FOB Review of Systems Constitutional: Denies: Anorexia, Fever Eyes: Denies: Blurred vision, Double vision HEENT: Reports: Head Aches - frontal / temporal MARTINEZ. Denies: Difficulty Hearing Cardiovascular: Reports: Edema. Denies: Chest Pain Gastrointestinal: Denies: Abdominal Pain Genitourinary: Denies: Dysuria Physical Exam Vitals: Vital Signs Temp Pulse Resp BP 98.4 F 92 16 112/68 12/26/18 11:23 12/26/18 11:23 12/26/18 11:23 12/26/18 11:23 General: Alert, Oriented x3, Cooperative, No apparent distress HEENT: Atraumatic, PERRLA, EOMI, Normocephalic Abdomen: Soft, Non Tender, Gravid Assessment/Plan All Active Problems (Last Reviewed 12/30/18 @ 09:00 by Nimco Roman) Mild preeclampsia (Acute) Abnormal glucose affecting (Acute) UTI in (Acute) Rh negative status during (Acute) (Acute) Previous delivery affecting , antepartum (Acute) Supervision of high-risk (Acute) 33 yo [id number] female with preeclampsia started on Labetaolol 100 mg po bid 4-5 days prior to this admission. Labs stable, but elevated spot proteinuria and Protein/Cr ratio Admit for serial BPs. bedrest, 24 hr urine BP meds prn to control HTN Headache. potentially evolving to severe preeclampsia, but MARTINEZ atypical location for preeclampsia. Tylenol PRN for MARTINEZ. Watch for resolution. Trial of Claritin or benadryl as may be sinus/allergy related. Continue observation. Delivery planned if evolving to severe preeclampsia by sx or by uncontrolled BPs.
--- NOTE | 2019-01-01 16:15 | HP.PCM_ITS ---
History Date of Admission: 12/24/18 - PIH vs preeclampsia Final MAGED: 01/28/19 Final MAGED Source: US <20 weeks Gestational age: 35 0/7 wk History of this : 33 yo [id number] female with h/o C section deliveries presents from office for observation due to HTN at 35 07 wk EGA She is planning repeat C/S and BTO. She was recently diagnosed with PIH and started on Labetaolol 100 mg po bid 4-5 days prior to this admission. She received betamethasone for anticipated delivery at last visit 4-5 d prior to this. 24 hr urine on 12/19/18: 706 mg/24 hr. She relates she has not been at bedrest, has some swelling and a headache. BPs elevated in the office and at admission PIH labs drawn including spot urine for Prot/Cr ratio Plts 177,000 Cr 0.67 Uric acid 5.6 LFTs wnl 3+ proteinuria and Pro/Cr ratio 1300 care A negative Rubella immune -- Started at 8 wk. -- Complicated by elevated 1 hr glucola but 3 hr GTT WNL (one value only abn) POB: Delivered C/S at 34 wk due to bleeding placenta previa. Baby had time in NICU Delivered C/S at 36 wk due to FHR in 20s. 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 PMH: Noncontributory PSH: C section deliveries. Allergies: NKDA Medications: PNV Labetalol 100 mg po bid Surgical History: Surgical History (Last Reviewed 12/30/18 @ 09:00 by Nimco Roman) delivery delivered O82 Allergies No Known Allergies Allergy (Verified 12/30/18 08:59) Home Medications: Home Medications vitamin,calcium,fgpmfznk-jvec-ieydi acid tablet 1 tab PO DAILY 07/15/18 blood pressure monitor kit See Dose Instructions .ROUTE .MEDSUPPLY #1 ea 12/20/18 Acetaminophen [Tylenol] 1,000 mg PO Q8H PRN 12/28/18 Guaifenesin/Dextromethorphan [Mucinex Dm ER 600-30 mg Tablet] 1 ea PO Q12H PRN PRN 12/28/18 Labetalol [Trandate (Beta Eliud)] 200 mg PO BID 12/28/18 hydrALAZINE [Apresoline] 10 mg PO 0600,1800 12/28/18 Smoking Status: Never smoker History Past Pregnancies: Past Pregnancies Delivery Date Name GA/Weeks Outcome Route Weight Infant Gender Labor Length Anesthesia Delivery Location Provider FOB Review of Systems Constitutional: Denies: Anorexia, Fever Eyes: Denies: Blurred vision, Double vision HEENT: Reports: Head Aches - frontal / temporal MARTINEZ. Denies: Difficulty Hearing Cardiovascular: Reports: Edema. Denies: Chest Pain Gastrointestinal: Denies: Abdominal Pain Genitourinary: Denies: Dysuria Physical Exam Vitals: Vital Signs Temp Pulse Resp BP 98.4 F 92 16 112/68 12/26/18 11:23 12/26/18 11:23 12/26/18 11:23 12/26/18 11:23 General: Alert, Oriented x3, Cooperative, No apparent distress HEENT: Atraumatic, PERRLA, EOMI, Normocephalic Abdomen: Soft, Non Tender, Gravid Assessment/Plan All Active Problems (Last Reviewed 12/30/18 @ 09:00 by Nimco Roman) Mild preeclampsia (Acute) Abnormal glucose affecting (Acute) UTI in (Acute) Rh negative status during (Acute) (Acute) Previous delivery affecting , antepartum (Acute) Supervision of high-risk (Acute) 33 yo [id number] female with preeclampsia started on Labetaolol 100 mg po bid 4-5 days prior to this admission. Labs stable, but elevated spot proteinuria and Protein/Cr ratio Admit for serial BPs. bedrest, 24 hr urine BP meds prn to control HTN Headache. potentially evolving to severe preeclampsia, but MARTINEZ atypical location for preeclampsia. Tylenol PRN for MARTINEZ. Watch for resolution. Trial of Claritin or benadryl as may be sinus/allergy related. Continue observation. Delivery planned if evolving to severe preeclampsia by sx or by uncontrolled BPs.
== END 2018-12-26 11:41 | disposition home or self-care (01) ==
PROVIDERS: Nurse Practitioner Women's Health; Admitting Provider Obstetrics & Gynecology; Family Provider Family Medicine; Referring Provider Obstetrics & Gynecology; Visit Provider Obstetrics & Gynecology
DX: O14.03 Mild to moderate pre-eclampsia, third trimester (principal); Z3A.35 35 weeks gestation of pregnancy
CPT/HCPCS: 36415; 59025; 59050; 82565; 82570; 84156; 84450; 84460; 84550; 85027; 85610; 85730; 99218; A4216; G0378

== ENCOUNTER 2018-12-28 08:05 | Outpatient (CLI) | payer OTHER, SELFPAY ==
[2018-12-24 08:48] VITALS: BMI 42.1
[2018-12-28 08:34] VITALS: BMI 40.6
--- NOTE | 2018-12-28 09:44 | OB.TRI.NOTE ---
History of Present Illness Date of Service: 12/28/18 Was patient seen by the physician?: No Reason For Visit: LOW BP, DECREASED MOVEMENT Date of Service: 12/28/18 Final MAGED: 01/28/19 Final MAGED Source: US <20 weeks Gestational age: 35 Weeks and 4 Days History of Present Illness: Complaints of decreased movement today and low blood pressure after taking hydralazine this morning. Allergies No Known Allergies Allergy (Verified 12/24/18 08:05) - Pertinent Past Medical History Surgical History: Past Surgical History (Last Reviewed 12/24/18 @ 08:05 by Lorraine Patrick) delivery delivered Physical Exam General: Alert, Oriented x3, Cooperative, No apparent distress Cardiovascular: Regular rate, Regular Rhythm Lungs: Clear to auscultation, Normal air movement Abdomen: Soft, Non Tender, Non-Distended, Gravid, Appropriate for Gestational Age Neurological: Neuro grossly intact NST - FHR Rate Baby A Baseline: 140s Variability:: Moderate Accelerations:: 15 x 15 Decelerations:: None NST Reactive:: Yes, Appropriate for gestational age FHR Category:: Category I Uterine Activity:: irregular not felt by patient Impression/Plan Patient with preeclampsia with decreased movement today. NST CAT 1 with movement appreciated by the patient here. BP 130/80s here. Given that episode of low blood pressure occurred after taking hydralazine instructed to hold this medication for now. No specific signs of preeclampsia. Discharged and will followup in 2 days as scheduled. Will return if has further episodes of low blood pressure or decreased movement. Goal is to try to make to 37 weeks with repeat delivery planned then.
== END 2018-12-28 09:10 | disposition home or self-care (01) ==
LOC: WPOUT 08:10 → WP 12-30 09:42 → OBT 12-30 09:42
PROVIDERS: Family Provider Family Medicine; Referring Provider Obstetrics & Gynecology; Visit Provider Obstetrics & Gynecology
DX: O14.93 Unspecified pre-eclampsia, third trimester (principal); O36.8130 Decreased fetal movements, third trimester, not applicable or unspecified; I95.2 Hypotension due to drugs; T46.5X5A Adverse effect of other antihypertensive drugs, initial encounter; Y92.9 Unspecified place or not applicable; Z3A.35 35 weeks gestation of pregnancy
CPT/HCPCS: 59025; 59050; 99218; G0378

== ENCOUNTER → 2018-12-30 09:17 | Outpatient (CLI) | payer OTHER, SELFPAY ==
[2018-12-30 08:59] VITALS: BMI 40.6
[2018-12-30 09:33] LABS: Protein, Urine (Random) 230.3 mg/dL (<11.9); Protein:Creat Ratio 1001 mg/g CRE (0-200)
== END ==
PROVIDERS: Visit Provider Obstetrics & Gynecology
DX: O14.03 Mild to moderate pre-eclampsia, third trimester (principal); Z3A.00 Weeks of gestation of pregnancy not specified
CPT/HCPCS: 82570; 84156

== ENCOUNTER 2018-12-30 09:35 | Outpatient (CLI) | payer OTHER, SELFPAY ==
[2018-12-30 08:59] VITALS: BMI 40.6
--- NOTE | 2018-12-30 09:53 | US_ITS ---
STUDY: OBSTETRICAL ULTRASOUND - BIOPHYSICAL PROFILE REASON FOR EXAM: Female, 33 years old. well-being LMP: Unknown. PRIOR ULTRASOUND: 12/19/2018 TECHNIQUE: Transabdominal TECHNICAL QUALITY: Adequate. FINDINGS: There is a single intrauterine fetus. The fetus is in a cephalic presentation. There is demonstrated cardiac activity with a heart rate of 152 bpm. There is a normal amniotic fluid volume. The largest amniotic fluid pocket measures 4x6.3 cm. The amniotic fluid index (SUKHWINDER) is 12.5 cm. The placenta is posterior in location and is not low lying. There are Grade 2 placental changes. Age by LMP: 35 weeks, 6 days. MAGED by LMP: 01/28/19. age by prior US: 37 weeks, 5 days. MAGED by prior US: 01/15/19. BIOPHYSICAL PROFILE: Breathing Movements (FBM): 2 Gross Body Movements (GBM): 2 Tone (FT): 2 Amniotic Fluid Volume (AFV): 2 TOTAL SCORE: 8 / 8 US/Biophysical Profile IMPRESSION: Normal biophysical profile of 88. Electronically Signed: Zaire Dioxn DO at 12:12 EDT Tel , Service support ,
[2018-12-30 10:21] VITALS: BMI 40.5
[2018-12-30] MEDS: Lactated Ringers 1,000 ML 1000 ML IV ×2 (10:24→13:26)
[2018-12-30 10:37] LABS: Hematocrit 36.9 % (37-47); Hemoglobin 12.3 g/dl (12.0-15.0); Mean Corp Hgb Conc 33.3 g/gl (32-36); Mean Corpuscular Hgb 29.2 pg (27.0-32.0); Mean Corpuscular Volume 87.6 fL (81-99); Mean Platelet Vol. 12.4 fl (6.2-12.0); Platelet Count 199 K/mm3 (150-450); RBC Distribution Width CV 13.5 % (11.6-14.6); RBC Distribution Width SD 41.6 fl (35.1-43.9); Red Blood Count 4.21 M/mm3 (4.2-5.4); White Blood Count 9.8 K/mm3 (4.4-11.0)
[2018-12-30 10:42] LABS: Scan Indicated on CBC? Y/N NO
[2018-12-30 10:44] LABS: Protein, Urine (Random) 246.2 mg/dL (<11.9); Protein:Creat Ratio 1492 mg/g CRE (0-200)
[2018-12-30 10:49] LABS: AST(SGOT) 25 U/L (15-37); Alanine Aminotransfer ALT/SGPT 18 U/L (13-56); Creatinine, Serum 0.75 mg/dL (0.55-1.02); EST Glomerular Filtration Rate 93 mL/min (>60); Est Glom Filt Rate - Afr Amer 112 mL/min (>60); Uric Acid 5.6 mg/dL (2.6-6.0)
[2018-12-30 10:52] LABS: International Normalized Ratio 0.9; Partial Thromboplast Time 24.3 Seconds (24.1-36.2)
[2018-12-30] MEDS: 0.9% Saline Lock 10 ML Syringe IV (16:20)
[2018-12-30] MEDS: Labetalol 200 MG Tablet PO (21:55)
[2018-12-30] MEDS: guaiFENesin 600 MG Tablet PO (21:55)
[2018-12-31] MEDS: Ondansetron 4 MG/2 ML Vial IV (00:05)
[2018-12-31] MEDS: 0.9% Saline Lock 10 ML Syringe IV (00:05)
--- NOTE | 2018-12-31 03:20 | PCM.HP.OB ---
- Problem List (1) Variable heart rate decelerations, antepartum Status: Acute (2) Mild preeclampsia Status: Acute Qualifiers: Comment: twice weekly visits- weekly nst/labs, home bp monitoring, labetalol 100 BID, growth us WNL, deliver at 37 weeks or if severe features. reviewed preeclampsia precautions (3) Abnormal glucose affecting Status: Acute Comment: nl 3 hr GTT (4) UTI in Status: Acute Qualifiers: Comment: Ampicillin; 2nd specimen contaminated. Rpt culture negative (5) Rh negative status during Status: Acute Qualifiers: Comment: rhogam given at 28 weeks and PRN (6) Status: Acute Qualifiers: Comment: declines carrier, genetic, and ntd screening. Normal anatomy scan- pt notified 09/10/18 EM (7) Previous delivery affecting , antepartum Status: Acute Comment: plans RLTCS and BTL (8) Supervision of high-risk Status: Acute Qualifiers: Comment: PRR MAGED 01/28/19 boy Roberto PC [place], Espn Pelon History Date of Admission: 12/24/18 - 35 wk Preeclampsia Final MAGED: 01/28/19 Final MAGED Source: US <20 weeks Gestational age: 36 Weeks and 0 Days History of this : This is a 33 year-old, at 35 weeks 6 days weeks gestational age presents after variable heart rate deceleration in the office. She is also had contractions throughout the day but cervix is fingertip thick and high. Patient denies any vaginal bleeding or loss of fluid. She has had some intermittent headache and spots in her vision on the left side but presently blood pressures are within normal limits and preeclampsia labs are within normal limits and her urine protein creatinine ratio is decreased from 3000 down to 1400. She received steroids almost 2 weeks ago. Surgical History: Surgical History (Last Reviewed 12/30/18 @ 09:00 by Nimco Roman) delivery delivered O82 Allergies No Known Allergies Allergy (Verified 12/30/18 08:59) Home Medications: Home Medications vitamin,calcium,ydcyfccr-kwoa-rpdgz acid tablet 1 tab PO DAILY 07/15/18 blood pressure monitor kit See Dose Instructions .ROUTE .MEDSUPPLY #1 ea 12/20/18 Acetaminophen [Tylenol] 1,000 mg PO Q8H PRN 12/28/18 Guaifenesin/Dextromethorphan [Mucinex Dm ER 600-30 mg Tablet] 1 ea PO Q12H PRN PRN 12/28/18 Labetalol [Trandate (Beta Eliud)] 200 mg PO BID 12/28/18 hydrALAZINE [Apresoline] 10 mg PO 0600,1800 12/28/18 Smoking Status: Never smoker Alcohol: None Number of Fetus(es): 1 Heart Tracin moderate variability reactive no decelerations since presenting to labor and delivery category I tracing [place]: Every 2-5 minutes regular and then after IV fluids decreasing greater than 10 minutes apart History Past Pregnancies: Past Pregnancies 2 previous term C-sections One early miscarriage first trimester Expected Delivery Method: Scheduled Section Review of Systems Constitutional: Denies: Fever, Malaise Eyes: Reports: Vision Change - resolving. Denies: Blurred vision HEENT: Reports: Head Aches - none presently today. Denies: Visual Changes Cardiovascular: Denies: Chest Pain, Palpitations Respiratory: Denies: Cough, Shortness of Breath, Wheezing Gastrointestinal: Denies: Abdominal Pain, Diarrhea, Nausea, Vomiting Genitourinary: Denies: Dysuria, Hematuria Musculoskeletal: Denies: Joint Pain, Muscle pain Skin: Denies: Lesions, Rash Neurological: Denies: Blurred vision, Focal weakness, Headaches Psychiatric: Denies: Anxiety, Depression Endocrine: Denies: Heat/ Cold Intolerance Hematologic/ Lymphatic: Denies: Easy Bruising, Easy Bleeding Physical Exam General: Alert, Cooperative, No apparent distress HEENT: Atraumatic, Normocephalic. Negative for: Thyromegaly, Lymphadenopathy Cardiovascular: Regular rate Lungs: Normal air movement Abdomen: Soft, Non Tender, Gravid Neurological: Deep Tendon Reflexes 2+/4 and Symmetrical, Neuro grossly intact. 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 Negative for: Vulvar lesions Estimated gestational size: Appropriate for gestational size Presentation: Cephalic Cervix Dilation (cm): 0 Assessment/Plan All Active Problems (Last Reviewed 12/30/18 @ 09:00 by Nimco Roman) Variable heart rate decelerations, antepartum (Acute) Mild preeclampsia (Acute) Abnormal glucose affecting (Acute) UTI in (Acute) Rh negative status during (Acute) (Acute) Previous delivery affecting , antepartum (Acute) Supervision of high-risk (Acute) This is a 33 year-old, , at 35w6d weeks gestational age with heart rate variable 1. deceleration- extended monitoring reassuring, will STO overnight for extended evaluation due to FHT and for preeclampsia monitoring. 8/8 BPP and normal SUKHWINDER, recent normal growth 2. preeclampsia with mild features- repeat labs in am. continue labetalol 200 BID.
--- NOTE | 2018-12-31 03:24 | HP.PCM_ITS ---
- Problem List (1) Variable heart rate decelerations, antepartum Status: Acute (2) Mild preeclampsia Status: Acute Qualifiers: Comment: twice weekly visits- weekly nst/labs, home bp monitoring, labetalol 100 BID, growth us WNL, deliver at 37 weeks or if severe features. reviewed preeclampsia precautions (3) Abnormal glucose affecting Status: Acute Comment: nl 3 hr GTT (4) UTI in Status: Acute Qualifiers: Comment: Ampicillin; 2nd specimen contaminated. Rpt culture negative (5) Rh negative status during Status: Acute Qualifiers: Comment: rhogam given at 28 weeks and PRN (6) Status: Acute Qualifiers: Comment: declines carrier, genetic, and ntd screening. Normal anatomy scan- pt notified 09/10/18 EM (7) Previous delivery affecting , antepartum Status: Acute Comment: plans RLTCS and BTL (8) Supervision of high-risk Status: Acute Qualifiers: Comment: PRR MAGED 01/28/19 boy Roberto PC [place], Espn [place] History Date of Admission: 12/24/18 - 35 wk Preeclampsia Final MAGED: 01/28/19 Final MAGED Source: US <20 weeks Gestational age: 36 Weeks and 0 Days History of this : This is a 33 year-old, at 35 weeks 6 days weeks gestational age presents after variable heart rate deceleration in the office. She is also had contractions throughout the day but cervix is fingertip thick and high. Patient denies any vaginal bleeding or loss of fluid. She has had some intermittent headache and spots in her vision on the left side but presently blood pressures are within normal limits and preeclampsia labs are within normal limits and her urine protein creatinine ratio is decreased from 3000 down to 1400. She received steroids almost 2 weeks ago. Surgical History: Surgical History (Last Reviewed 12/30/18 @ 09:00 by Nimco Roman) delivery delivered O82 Allergies No Known Allergies Allergy (Verified 12/30/18 08:59) Home Medications: Home Medications vitamin,calcium,sbkstifl-prps-iwqas acid tablet 1 tab PO DAILY 07/15/18 blood pressure monitor kit See Dose Instructions .ROUTE .MEDSUPPLY #1 ea 12/20/18 Acetaminophen [Tylenol] 1,000 mg PO Q8H PRN 12/28/18 Guaifenesin/Dextromethorphan [Mucinex Dm ER 600-30 mg Tablet] 1 ea PO Q12H PRN PRN 12/28/18 Labetalol [Trandate (Beta Eliud)] 200 mg PO BID 12/28/18 hydrALAZINE [Apresoline] 10 mg PO 0600,1800 12/28/18 Smoking Status: Never smoker Alcohol: None Number of Fetus(es): 1 Heart Tracin moderate variability reactive no decelerations since presenting to labor and delivery category I tracing [place]: Every 2-5 minutes regular and then after IV fluids decreasing greater than 10 minutes apart History Past Pregnancies: Past Pregnancies 2 previous term C-sections One early miscarriage first trimester Expected Delivery Method: Scheduled Section Review of Systems Constitutional: Denies: Fever, Malaise Eyes: Reports: Vision Change - resolving. Denies: Blurred vision HEENT: Reports: Head Aches - none presently today. Denies: Visual Changes Cardiovascular: Denies: Chest Pain, Palpitations Respiratory: Denies: Cough, Shortness of Breath, Wheezing Gastrointestinal: Denies: Abdominal Pain, Diarrhea, Nausea, Vomiting Genitourinary: Denies: Dysuria, Hematuria Musculoskeletal: Denies: Joint Pain, Muscle pain Skin: Denies: Lesions, Rash Neurological: Denies: Blurred vision, Focal weakness, Headaches Psychiatric: Denies: Anxiety, Depression Endocrine: Denies: Heat/ Cold Intolerance Hematologic/ Lymphatic: Denies: Easy Bruising, Easy Bleeding Physical Exam General: Alert, Cooperative, No apparent distress HEENT: Atraumatic, Normocephalic. Negative for: Thyromegaly, Lymphadenopathy Cardiovascular: Regular rate Lungs: Normal air movement Abdomen: Soft, Non Tender, Gravid Neurological: Deep Tendon Reflexes 2+/4 and Symmetrical, Neuro grossly intact. 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 Negative for: Vulvar lesions Estimated gestational size: Appropriate for gestational size Presentation: Cephalic Cervix Dilation (cm): 0 Assessment/Plan All Active Problems (Last Reviewed 12/30/18 @ 09:00 by Nimco Roman) Variable heart rate decelerations, antepartum (Acute) Mild preeclampsia (Acute) Abnormal glucose affecting (Acute) UTI in (Acute) Rh negative status during (Acute) (Acute) Previous delivery affecting , antepartum (Acute) Supervision of high-risk (Acute) This is a 33 year-old, , at 35w6d weeks gestational age with heart rat e variable 1. deceleration- extended monitoring reassuring, will STO overnight for extended evaluation due to FHT and for preeclampsia monitoring. 8/8 BPP and normal SUKHWINDER, recent normal growth 2. preeclampsia with mild features- repeat labs in am. continue labetalol 200 BID.
[2018-12-31 06:36] LABS: Absolute Lymphocyte Count 2.05 X10^3/ul (0.83-4.51); Basophil# 0.01 X10^3/uL; Basophil% 0.1 % (0-1); Eosinophil# 0.16 X10^3/uL; Eosinophils% 1.8 % (0-5); Hematocrit 34.2 % (37-47); Hemoglobin 11.4 g/dl (12.0-15.0); Lymphocyte # 2.05 X10^3/ul (4.0); Lymphocyte % 22.5 % (19-41); Mean Corp Hgb Conc 33.3 g/gl (32-36); Mean Corpuscular Hgb 29.3 pg (27.0-32.0); Mean Corpuscular Volume 87.9 fL (81-99); Mean Platelet Vol. 12.4 fl (6.2-12.0); Monocyte# 0.85 X10^3/uL; Monocyte% 9.3 % (0-10); Neutrophil # 6.03 X10^3/uL (2.7-7.7); POSITIVE COUNT NO; POSITIVE DIFFERENTIAL NO; POSITIVE MORPHOLOGY NO; Platelet Count 175 K/mm3 (150-450); RBC Distribution Width CV 13.6 % (11.6-14.6); Red Blood Count 3.89 M/mm3 (4.2-5.4); White Blood Count 9.1 K/mm3 (4.4-11.0)
[2018-12-31 06:58] LABS: Albumin, Serum 2.2 g/dL (3.2-5.0); BUN 13 mg/dL (7-18); BUN/Creat Ratio 19.5 RATIO (10-20); Creatinine, Serum 0.67 mg/dL (0.55-1.02); EST Glomerular Filtration Rate 107 mL/min (>60); Est Glom Filt Rate - Afr Amer 129 mL/min (>60); Estimated Creatinine Clearance 92.69 ml/min; Globulin 3.9 g/dL (2.2-4.2); Glucose 82 mg/dL (74-106); Protein, Total 6.1 g/dL (6.4-8.2)
[2018-12-31 06:59] LABS: ALB/GLOB Ratio 0.6 RATIO (0.9-2.4); AST(SGOT) 22 U/L (15-37); Alanine Aminotransfer ALT/SGPT 18 U/L (13-56); Alkaline Phosphatase 154 U/L (45-117); Anion Gap 9 (5-15); Calcium,Total 8.4 mg/dL (8.5-10.1); Chloride 107 mmol/L (98-107); Potassium 4.1 mmol/L (3.5-5.1); Sodium Level 137 mmol/L (136-145)
--- NOTE | 2018-12-31 09:01 | PCM.PN.OB ---
Patient Problems: Active and Suspected Problems (Last Reviewed 12/30/18 @ 09:00 by Nimco Roamn) Variable heart rate decelerations, antepartum (Acute) Subjective: patient feeling better, asymptomatic except for congestion/uri symptoms. no gilliland bv no vb lof good fm no regular ctx now. - Physical Exam General: Alert, Oriented x3 Extremities: - - fht 150s moderate variability reactive no decels cat I tracing toco no regular no decels Weight: 225 lb 4.999 oz Body Mass Index (BMI) 40.5 Intake and Output for Last 24 Hours 12/29/18 12/30/18 12/31/18 23:59 23:59 23:59 Intake Total 2520 / 2520 Output Total 450 / 450 Balance 2069 / 2069 Laboratory Tests Past 24 Hrs 12/30/18 12/30/18 12/30/18 10:10 10:10 10:10 WBC 9.8 RBC 4.21 Hgb 12.3 Hct 36.9 L MCV 87.6 MCH 29.2 MCHC 33.3 RDW 13.5 RDW Differential 41.6 Plt Count 199 MPV 12.4 H Immature Gran % (Auto) Neut % (Auto) Lymph % (Auto) [place] % (Auto) Eos % (Auto) Baso % (Auto) Absolute Neuts (auto) Absolute Lymphs (auto) Total Counted PT 12.0 INR 0.9 APTT 24.3 Sodium Potassium Chloride Carbon Dioxide Anion Gap BUN Creatinine Estim Creat Clear Calc Est GFR (MDRD) Af Amer Est GFR (MDRD) Non-Af BUN/Creatinine Ratio Glucose Uric Acid Calcium Total Bilirubin AST ALT Alkaline Phosphatase Total Protein Albumin Globulin Albumin/Globulin Ratio U Random Total Protein 246.2 H Urine Creatinine 165.00 Protein/Creatinin Ratio 1492 H 12/30/18 12/31/18 12/31/18 10:10 06:18 06:18 WBC 9.1 RBC 3.89 L Hgb 11.4 L Hct 34.2 L MCV 87.9 MCH 29.3 MCHC 33.3 RDW 13.6 RDW Differential 43.0 Plt Count 175 MPV 12.4 H Immature Gran % (Auto) 0.300 Neut % (Auto) 66.0 Lymph % (Auto) 22.5 [place] % (Auto) 9.3 Eos % (Auto) 1.8 Baso % (Auto) 0.1 Absolute Neuts (auto) 6.0 Absolute Lymphs (auto) 2.05 Total Counted Not Reportable PT INR APTT Sodium 137 Potassium 4.1 Chloride 107 Carbon Dioxide 21.0 Anion Gap 9 BUN 13 Creatinine 0.75 0.67 Estim Creat Clear Calc 82.80 92.69 Est GFR (MDRD) Af Amer 112 129 Est GFR (MDRD) Non-Af 93 107 BUN/Creatinine Ratio 19.5 Glucose 82 Uric Acid 5.6 Calcium 8.4 L Total Bilirubin 0.40 AST 25 22 ALT 18 18 Alkaline Phosphatase 154 H Total Protein 6.1 L Albumin 2.2 L Globulin 3.9 Albumin/Globulin Ratio 0.6 L U Random Total Protein Urine Creatinine Protein/Creatinin Ratio Medical Necessity - Tobacco Use Smoking Status: Never smoker Assessment/Plan All Active Problems (Last Reviewed 12/30/18 @ 09:00 by Nimco Roman) Variable heart rate decelerations, antepartum (Acute) Mild preeclampsia (Acute) Abnormal glucose affecting (Acute) UTI in (Acute) Rh negative status during (Acute) (Acute) Previous delivery affecting , antepartum (Acute) Supervision of high-risk (Acute) This is a 33 year-old, , at 36w0d weeks gestational age with heart rate variable 1. deceleration- extended monitoring reassuring, s/p STO overnight for extended evaluation due to FHT and for preeclampsia monitoring. 8/8 BPP and normal SUKHWINDER, recent normal growth 2. preeclampsia with mild features- repeat labs normal. continue labetalol 200 BID. dc home
== END 2018-12-31 08:45 | disposition home or self-care (01) ==
LOC: OBT 09:43 → WP 12-31 10:06
PROVIDERS: Family Provider Family Medicine; Referring Provider Obstetrics & Gynecology; Visit Provider Obstetrics & Gynecology
DX: O76 Abnormality in fetal heart rate and rhythm complicating labor and delivery (principal); O14.03 Mild to moderate pre-eclampsia, third trimester; O99.810 Abnormal glucose complicating pregnancy; O23.43 Unspecified infection of urinary tract in pregnancy, third trimester; O36.0130 Maternal care for anti-D [Rh] antibodies, third trimester, not applicable or unspecified; O34.211 Maternal care for low transverse scar from previous cesarean delivery; O09.893 Supervision of other high risk pregnancies, third trimester; Z3A.35 35 weeks gestation of pregnancy
CPT/HCPCS: 96361 ×6; 96374; 36415; 59025; 59050; 76818; 80053; 82565; 82570; 84156; 84450; 84460; 84550; 85025; 85027; 85610; 85730; 99218; J7120; A4216; G0378; J2405

== ENCOUNTER → 2019-01-03 16:59 | Outpatient (CLI) | payer OTHER, SELFPAY ==
[2019-01-03 16:24] VITALS: BMI 40.5
[2019-01-03 17:30] LABS: Protein, Urine (Random) 89.8 mg/dL (<11.9); Protein:Creat Ratio 953 mg/g CRE (0-200)
== END ==
PROVIDERS: Family Provider Family Medicine; Referring Provider Obstetrics & Gynecology; Visit Provider Obstetrics & Gynecology
DX: O16.9 Unspecified maternal hypertension, unspecified trimester (principal)
CPT/HCPCS: 82570; 84156

== ENCOUNTER 2019-01-07 09:55 | Inpatient (IN) | payer OTHER, SELFPAY ==
[2018-11-08 16:23] VITALS: BMI 37.0
[2019-01-03 16:24] VITALS: BMI 40.5
[2019-01-07] VITALS (16 sets, daily range): BP systolic 124–150; BP diastolic 68–93; PULSE 62–94; RESP 16–18; TEMP 36.1–37.2; O2SAT 96–99; BMI 40.9
--- NOTE | 2019-01-07 | FALS_PTH ---
PATIENT: OLU SANTOS LOC: [facility] U#:[id number] AGE/SX: 33/F ROOM: WP009 RE01/07/[address]: Dr. Maite Schultz MD : 1985 BED: 1 DIS: 01/09/2019 SPEC #: [id number] RECD: 01/08/19 10:49 STATUS: KORINA REAren #: [id number] JO-ANN: 01/07/19 00:[address]: Maite Schultz DEPT: SURGICAL PATHOLOGY RECD BY: Tim Maldonado ENTERED: 01/08/19 10:50 SP TYPE: FALL TUBES OTHR DR: MD Tray Cheek Tissues: Fallopian tube Procedures: Surgery Specimen Level II HEADER OPERATION: Bilateral tubal ligation PRE-OP DIAGNOSIS: Sterilization request TISSUE SUBMITTED: Fallopian tubes MICROSCOPIC DIAGNOSIS Right and left fallopian tubes, bilateral partial salpingectomies: Two complete segments of fallopian tubes with no pathologic change. See comment. AM:emanuel 01/09/19 COMMENT Focal decidual change is seen in the left fallopian tube. MICROSCOPIC DESCRIPTION Slides are reviewed. GROSS DESCRIPTION Received is one container labeled with the patient's name and designated bilateral fallopian tubes, right with suture. The specimen consists of two fallopian tubes. The right fallopian tube measures 1.7 x 1 cm. The left fallopian tube measures 3.7 x 1 cm. The specimen is sectioned and totally submitted in two cassettes as follows: 1 - right fallopian tube, 2 - left fallopian tube. / AM:emanuel 01/08/19 TC:5 CPT: 30989 x2
--- NOTE | 2019-01-07 09:27 | PCM.HPOB.BLA ---
- Problem List (1) Abnormal glucose affecting Status: Acute Comment: nl 3 hr GTT (2) Mild preeclampsia Status: Acute Qualifiers: Comment: twice weekly visits- weekly nst/labs, home bp monitoring, labetalol 100 BID, growth us WNL, deliver at 37 weeks or if severe features. reviewed preeclampsia precautions (3) Status: Acute Qualifiers: Comment: declines carrier, genetic, and ntd screening. Normal anatomy scan- pt notified 09/10/18 EM (4) Previous delivery affecting , antepartum Status: Acute Comment: plans RLTCS and BTL (5) Rh negative status during Status: Acute Qualifiers: Comment: rhogam given at 28 weeks and PRN (6) Supervision of high-risk Status: Acute Qualifiers: Comment: PRR MAGED 01/28/19 boy Roberto PC [place], [place] (7) UTI in Status: Acute Qualifiers: Comment: Ampicillin; 2nd specimen contaminated. Rpt culture negative History and Physical Date of Admission: 01/07/19 Vital Signs 01/03/19 Body Mass Index (BMI) 40.5 01/03/19 Height 5 ft 2.5 in 01/03/19 Weight: 226 lb 01/03/19 Body Mass Index (BMI) 40.6 01/03/19 Blood Pressure 136/90 H Intake Visit Reasons: 36 WEEK OB Chief Complaint: est ob Overlay Plastician Required: No Is patient in pain?: No Allergies No Known Allergies Allergy (Verified 01/03/19 16:19) Medications vitamin,calcium,opdodmun-uuma-odsck acid tablet 1 tab PO DAILY 07/15/18 [History Confirmed 01/03/19] blood pressure monitor kit See Dose Instructions .ROUTE .MEDSUPPLY #1 ea 12/20/18 [Rx Confirmed 01/03/19] Acetaminophen [Tylenol] 1,000 mg PO Q8H PRN 12/28/18 [History Confirmed 01/03/19] Guaifenesin/Dextromethorphan [Mucinex Dm ER 600-30 mg Tablet] 1 ea PO Q12H PRN PRN 12/28/18 [History Confirmed 01/03/19] Labetalol [Trandate (Beta Eliud)] 200 mg PO BID 12/28/18 [History Confirmed 01/03/19] hydrALAZINE [Apresoline] 10 mg PO 0600,1800 12/28/18 [History Confirmed 01/03/19] Last Menstral Period: 05/14/18 Zika: Zika virus screening: Negative : No PFSH PFSH Medical History Abnormal glucose affecting (Acute) UTI in (Acute) Surgical History delivery delivered (Acute) Family History Grandmother Diabetes Father Hypertension Grandfather Colon cancer Social History Smoking Status: Never smoker alcohol intake: never substance use type: does not use caffeine: Yes what type of physical activity do you participate in: walking seatbelt use: always do you feel safe at home: Yes additional social history: [facility] 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 Date Name GA/Weeks Outcome Route Bth Weight Gen Labor Lgth Anesthesia Del Locatn Provider FOB Unknown 2010 D[place] 34 live - Female Dr. Hollis Unknown 2012 Espn 36 live - full term Male Telma Delivery Date: On 06/19/18 @ 08:29 Maite Schultz heart rate emergency Delivery Date: On 06/19/18 @ 08:28 Maite Schultz placenta previa HPI 36 WEEK OB: Details: OLU SANTOS is a 33 year old who presents for routine OB visit. OB Visit MAGED Calculator Estimated Delivery Date 01/28/19 Based on LMP (certain) 04/23/18 Current WG 37w 0d Number 1 Expected Delivery Route/Plan plans RLTCS and BTL Specific Issue/Plans flu vaccine: given tdap vaccine: given rhogam: given LARC form signed: declines labor support person: Pelon pain management: R CS cut cord/dad catch: : yes PP control planned: BTO discussed possible routes of delivery and associated risks: [] special requests: [] Initial Weight: 205 lb Date EGA Weight BP Urine Prot Glucose FHR FuHt Pres Mov CTX Dilation Effaced St Visit Note 07/15/18 11w 6d 206 lb (+16 oz) 120/80 165 no vb cramping 08/16/18 16w 3d 209 lb (+4 lb) 122/80 Negative Negative 150 no vb cramping 09/09/18 19w 6d 214 lb (+9 lb) 124/82 Negative Negative 161 Active absent Having urinary frequency. LL back pain. NO CTX, LOF, VB 10/11/18 24w 3d 216 lb (+11 lb) 106/60 150 Active absent no vb lof good fm n oregular ctx 11/08/18 28w 3d 223 lb (+18 lb) 120/70 Negative Negative 131 28 Active absent No VB, LOF. Doing well 11/22/18 30w 3d 226 lb 2 oz (+21 lb 2 oz) 120/78 Negative Negative 130 31 Active absent no vb lof good fm n oregualr ctx 11/28/18 31w 2d 225 lb 4 oz (+20 lb 4 oz) 130/85 Negative Negative 138 32 Active absent 0 -4 thinks LOF earlier today. No reg ctx. No VB. Good fm. 12/06/18 32w 3d 227 lb (+22 lb) 136/94 140 34 Active absent no vb lof good fm no regular ctx, elevated bp- recommend eval on l and d 12/19/18 34w 2d 233 lb 4 oz (+28 lb 4 oz) 150/90 3+ Negative 140 absent to l and d for preeclampsia evaluation 12/24/18 35w 0d 233 lb (+28 lb) 148/94 3+ Negative absent headache 01/03/19 36w 3d 226 lb (+21 lb) 136/90 140 130 Active absent no vb lof good fm co ctx today mild. intermittent [place] and occasional spots in vision but comes and goes. bp less today. feeling tired. check labs today again. reactive nst. Visit Notes Visit Date: 01/03/19 ??no vb lof good fm co ctx today mild. intermittent [place] and occasional spots in vision but comes and goes. bp less today. feeling tired. check labs today again. reactive nst. ??Maite Schultz MD on 01/03/19 Visit Date: 12/24/18 ??headache ??PETERSON Glass on 12/24/18 Visit Date: 12/19/18 ??to l and d for preeclampsia evaluation ??Maite Schultz MD on 12/21/18 Visit Date: 12/06/18 ??no vb lof good fm no regular ctx, elevated bp- recommend eval on l and d ??Maite Schultz MD on 12/06/18 Visit Date: 11/28/18 ??thinks LOF earlier today. No reg ctx. No VB. Good fm. ??GNOSALO GlassC on 11/28/18 Visit Date: 11/22/18 ??no vb lof good fm n oregualr ctx ??Maite Schultz MD on 11/22/18 Visit Date: 11/08/18 ??No VB, LOF. Doing well ??GONSALO GlassC on 11/08/18 Visit Date: 10/11/18 ??no vb lof good fm n oregular ctx ??Maite Schultz MD on 10/11/18 Visit Date: 09/09/18 ??Having urinary frequency. LL back pain. NO CTX, LOF, VB ??PETERSON Glass on 09/09/18 Visit Date: 08/16/18 ??no vb cramping ??Maite Schultz MD on 08/16/18 Visit Date: 07/15/18 ??no vb cramping ??Maite Schultz MD on 07/15/18 ACOG First Trimester First Trimester: Desire for , Alcohol, Tobacco Cessation, Illicit/Recreational Drug/Substance Use, Intimate Partner Violence, Barriers to care, Unstable Housing, Communication Barriers, Environmental/Work Hazards, Anticipated Course of Care, Toxoplasmosis Precations, Use of Any medications, Sexual activity, Exercise, Dental Care, Sauna/Hot tub use, Seat Belt use, Childbirth classes/Hospital facilities, , Travel, Indications for US and Screening for Aneuploidy Second Trimester Second Trimester: Signs and Symptoms of Labor, Selecting a care provider, Reproductive Life Planning, Care Planning, Tobacco Cessation, Depression/Anxiety and Intimate Partner Violence Third Trimester Third Trimester: Pain Management Plans, Labor support person(s), Immediate Larc, Movement Monitoring and Feeding Yes ; discussed Trial of Labor after Counseling or discussed Circumcision preference Diagnostics Diagnostics Labs Hct 36.2 % (37-47) L 01/03/19 Hgb 12.2 g/dl (12.0-15.0) 01/03/19 Obstetrics Ultrasound 12/19/18 Group B Strep DNA Negative (Negative) 12/19/18 Details: HIV: Urine Culture: Sequential Screen: NIPT Screen: ROS Const Reports system reviewed and no additional complaints, except as docu Card Reports system reviewed and no additional complaints, except as docu Resp Reports system reviewed and no additional complaints, except as docu GI Reports system reviewed and no additional complaints, except as docu, Reports nausea Reports system reviewed and no additional complaints, except as docu Musc Reports system reviewed and no additional complaints, except as docu Exam Const General: cooperative, healthy appearing, comfortable, anxious HENMT Head: normal to inspection Nose: external nose normal Face and sinus: normal facial exam Neck Neck: normal visual inspection, full ROM, no lymphadenopathy Thyroid: thyroid normal Chest Chest palpation & inspection: normal inspection of the chest Resp Effort & Inspection: normal respiratory effort GI Inspection: normal to inspection Palpation: soft, other (gravid uterus) Other: infant vertex and appropriate size for gestational age Other: Cervical Exam: Extrem General: pedal edema Assessment & Plan Problems 1. Rh negative status during in third trimester O09.899; Z67.91 2. Urinary tract infection in mother during third trimester of O23.40 3. Previous delivery affecting , antepartum O34.219 4. Abnormal glucose affecting O99.810 5. 36 weeks gestation of Z3A.36 6. Supervision of high risk in third trimester O09.93 Plan plan RLTCS and BTL movement and labor precautions reviewed. ACOG trimester education reviewed and updated. see problem list details for updated plan management information and see below for orders placed at this visit. GA appropriate handout given. Orders Orders: POC Urinalysis 2 Dip (Clinic) 01/03/19 Protein+Creatinine Ratio,Urine 01/03/19 O16.9 Comprehensive Metabolic Profil 01/03/19 O09.90 LDH 01/03/19 O09.90 Uric Acid 01/03/19 O09.90 CBC W/Diff, Automated 01/03/19 O09.90 Coding Level of Care Code OB Routine Diagnoses Rh negative status during in third trimester O09.899; Z67.91 Urinary tract infection in mother during third trimester of O23.40 Previous delivery affecting , antepartum O34.219 Abnormal glucose affecting O99.810 36 weeks gestation of Z3A.36 ??Weeks of gestation: 36 weeks Supervision of high risk in third trimester O09.93 ??Trimester: third trimester UPDATE- I have seen the patient and performed any clinically relevant updates to the history and physical exam. Maite Schultz MD
[2019-01-07] MEDS: Lactated Ringers 1,000 ML 999 ML IV ×2 (11:00→22:31)
[2019-01-07 11:15] LABS: Absolute Lymphocyte Count 1.69 X10^3/ul (0.83-4.51); Absolute Neutrophil Count 6.2 X10^3/uL (2.0-7.7); Basophil# 0.01 X10^3/uL; Basophil% 0.1 % (0-1); Eosinophil# 0.07 X10^3/uL; Eosinophils% 0.8 % (0-5); Hematocrit 35.7 % (37-47); Hemoglobin 11.9 g/dl (12.0-15.0); Lymphocyte # 1.69 X10^3/ul (4.0); Lymphocyte % 19.7 % (19-41); Mean Corp Hgb Conc 33.3 g/gl (32-36); Mean Corpuscular Hgb 29.2 pg (27.0-32.0); Mean Corpuscular Volume 87.5 fL (81-99); Mean Platelet Vol. 11.8 fl (6.2-12.0); Monocyte# 0.59 X10^3/uL; Monocyte% 6.9 % (0-10); Neutrophil # 6.21 X10^3/uL (2.7-7.7); Neutrophil % 72.2 % (47-70); Platelet Count 181 K/mm3 (150-450); RBC Distribution Width CV 14.2 % (11.6-14.6); RBC Distribution Width SD 43.7 fl (35.1-43.9); Red Blood Count 4.08 M/mm3 (4.2-5.4); White Blood Count 8.6 K/mm3 (4.4-11.0)
[2019-01-07 11:16] LABS: POSITIVE COUNT NO; POSITIVE DIFFERENTIAL NO; POSITIVE MORPHOLOGY NO
[2019-01-07] MEDS: Lactated Ringers 1,000 ML 150 ML IV ×2 (11:56→15:50)
[2019-01-07] MEDS: Sodium Citrate/Citric Acid 30 ML UDC PO (12:39)
[2019-01-07] MEDS: Cefazolin 2 GM in 0.9% Normal Saline 100 ML IV (12:50)
--- NOTE | 2019-01-07 13:01 | OP.PCM_ITS ---
Problem List (1) Abnormal glucose affecting Status: Acute Comment: nl 3 hr GTT (2) Mild preeclampsia Status: Acute Qualifiers: Comment: twice weekly visits- weekly nst/labs, home bp monitoring, labetalol 100 BID, growth us WNL, deliver at 37 weeks or if severe features. reviewed preeclampsia precautions (3) Status: Acute Qualifiers: Comment: declines carrier, genetic, and ntd screening. Normal anatomy scan- pt notified 09/10/18 EM (4) Previous delivery affecting , antepartum Status: Acute Comment: plans RLTCS and BTL (5) Rh negative status during Status: Acute Qualifiers: Comment: rhogam given at 28 weeks and PRN (6) Supervision of high-risk Status: Acute Qualifiers: Comment: PRR MAGED 01/28/19 boy Roberto IVETTE Kauffman, [place] (7) UTI in Status: Acute Qualifiers: Comment: Ampicillin; 2nd specimen contaminated. 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 Spinal anesthesia was placed without difficulty. Worthy catheter was placed. The patient was placed in the dorsal supine position with leftward tilt. Patient was prepped and draped in the normal sterile fashion. Pfannenstiel skin incision was made with the scalpel and carried through to the underlying layer of fascia with the scalpel. Fascia was nicked in the midline and the incision extended laterally. The rectus bellies were dissected off superiorly and inferiorly with out complication both sharply and bluntly. The peritoneum was entered digitally. The incision was stretched and a low transverse uterine incision was made with the scalpel. The infant's head was delivered atraumatically followed by the anterior and posterior shoulders without complication the rest of the delivered. The cord was clamped and cut and the infant was handed off to awaiting nurse. The placenta was delivered spontaneously immediately following and was noted to be intact and have a three- vessel cord. The uterus was exteriorized cleared of all clots and debris, and the incision was closed in a single layer closure using #1 Monocryl. Bilateral fallopian tubes were transected via the [place] method using 1-0 plain suture the uterus was returned to the maternal abdomen and gutters were cleared of all clots and debris. The ovaries and fallopian tubes were noted to be within normal limits. The peritoneum was closed with 3-0 Monocryl in a running fashion. Fascia was closed with 0 PDS in a running fashion. Subcutaneous tissue was copiously irrigated and the skin was closed with 3-0 Monocryl in a subcuticular fashion. Mepilex dressing was applied without complication. Patient was taken to recovery in stable condition. Amniotic Membrane Rupture Type: Spontaneous Amniotic Fluid Description: Clear Placenta Disposition: [facility] Cord Entanglement: None Cord Vessel Description: 3 Vessels Esitmated Blood Loss (ml): 600 Gender: Male Delayed cord clamping: Yes Pre-op Antibiotic Given: Ancef 2 grams IV x1 Pt instructed on risks of surgery: Bleeding, Anesthesia Risks, Infection, Permanency Complications: None
[2019-01-07] MEDS: Oxytocin 30 units/NS 500 ml 30 UNITS/500 ML IV.SOLN 167 UNITS IV (13:11)
[2019-01-07] MEDS: Ketorolac 30 MG/ML Syringe IV (13:20)
[2019-01-07 15:37] LABS: Pathology Specimen OB SEE PATHOLOGY REPORT
[2019-01-07] MEDS: proMETHazine 25 MG/ML Syringe 12.5 MG IV (17:54)
[2019-01-07] MEDS: Lactated Ringers 500 ML 999 ML IV (18:20)
--- NOTE | 2019-01-07 18:22 | NURSING ---
1809 dr fairchild notified of decreased urine output; pt unable to tolerated po flluids yet; pt given phenergan b/c zofran not effective; orders received
[2019-01-07] MEDS: Labetalol 100 MG Tablet PO (22:30)
[2019-01-07] MEDS: Lactated Ringers 1,000 ML 100 ML IV (23:27)
[2019-01-08] VITALS (12 sets, daily range): BP systolic 108–128; BP diastolic 71–84; PULSE 80–98; RESP 16–18; TEMP 35.7–37.1; O2SAT 97–99
[2019-01-08] MEDS: Ketorolac 30 MG/ML Syringe IV ×4 (02:15→19:46)
[2019-01-08 05:32] LABS: Hemoglobin 9.2 g/dl (12.0-15.0); Mean Corp Hgb Conc 32.9 g/gl (32-36); Mean Corpuscular Hgb 29.2 pg (27.0-32.0); Mean Corpuscular Volume 88.9 fL (81-99); Mean Platelet Vol. 11.7 fl (6.2-12.0); Platelet Count 149 K/mm3 (150-450); RBC Distribution Width CV 14.1 % (11.6-14.6); RBC Distribution Width SD 43.7 fl (35.1-43.9); Red Blood Count 3.15 M/mm3 (4.2-5.4); White Blood Count 9.7 K/mm3 (4.4-11.0)
[2019-01-08 05:45] LABS: Scan Indicated on CBC? Y/N NO
[2019-01-08] MEDS: Labetalol 100 MG Tablet PO ×2 (09:54→22:11)
[2019-01-08] MEDS: Senna/Docusate Sodium 1 Tablet PO (09:54)
[2019-01-08] MEDS: Enoxaparin 40 MG/0.4 ML Syringe SC (09:55)
[2019-01-08] MEDS: 0.9% Saline Lock 10 ML Syringe IV ×2 (13:23→19:45)
[2019-01-08] MEDS: oxyCODONE 5 MG Tablet PO ×2 (13:23→17:53)
[2019-01-09] MEDS: oxyCODONE 5 MG Tablet PO ×2 (00:49→08:50)
[2019-01-09 01:39] VITALS: BP 128/75; PULSE 86; RESP 15; TEMP 36.9; O2SAT 97
[2019-01-09] MEDS: Ketorolac 30 MG/ML Syringe IV ×2 (01:43→08:04)
[2019-01-09] MEDS: 0.9% Saline Lock 10 ML Syringe IV (01:44)
[2019-01-09 08:00] VITALS: BP 147/86; PULSE 91; RESP 18; TEMP 36.6; O2SAT 100
[2019-01-09] MEDS: Enoxaparin 40 MG/0.4 ML Syringe SC (10:11)
[2019-01-09] MEDS: Senna/Docusate Sodium 1 Tablet PO (10:11)
[2019-01-09] MEDS: Labetalol 100 MG Tablet PO (10:12)
--- NOTE | 2019-01-09 10:36 | PCM.HP.STD ---
Problem List (1) Abnormal glucose affecting Status: Acute Comment: nl 3 hr GTT (2) Mild preeclampsia Status: Acute Qualifiers: Comment: twice weekly visits- weekly nst/labs, home bp monitoring, labetalol 100 BID, growth us WNL, deliver at 37 weeks or if severe features. reviewed preeclampsia precautions (3) Status: Acute Qualifiers: Comment: declines carrier, genetic, and ntd screening. Normal anatomy scan- pt notified 09/10/18 EM (4) Previous delivery affecting , antepartum Status: Acute Comment: plans RLTCS and BTL (5) Rh negative status during Status: Acute Qualifiers: Comment: rhogam given at 28 weeks and PRN (6) Supervision of high-risk Status: Acute Qualifiers: Comment: PRR MAGED 01/28/19 boy Roberto PC [place], [place] (7) UTI in Status: Acute Qualifiers: Comment: Ampicillin; 2nd specimen contaminated. Rpt culture negative History of Present Illness Date of Admission: 01/09/19 The patient is a 33 year old F [] Past Medical History Medical History: Medical History (Last Reviewed 01/03/19 @ 16:24 by Lorraine Patrick) Abnormal glucose affecting (Acute) O99.810 nl 3 hr GTT UTI in (Acute) O23.40 Ampicillin; 2nd specimen contaminated. Rpt culture negative Allergies No Known Allergies Allergy (Verified 01/03/19 16:19) Home Medications: Ambulatory Orders Medication Instructions Recorded 1 tab PO DAILY 07/15/18 vitamin,calcium,odpwaddz-twzs-freme acid tablet blood pressure monitor kit See Dose Instructions .ROUTE 12/20/18 .MEDSUPPLY #1 ea Acetaminophen [Tylenol] 1,000 mg PO Q8H PRN 12/28/18 Guaifenesin/Dextromethorphan 1 ea PO Q12H PRN PRN 12/28/18 [Mucinex Dm ER 600-30 mg Tablet] Labetalol [Trandate (Beta Eliud)] 200 mg PO BID 12/28/18 Surgical History: Surgical History (Last Reviewed 01/03/19 @ 16:24 by Lorraine Patrick) delivery delivered O82 Surgical History: no surgical history Smoking Status: Never smoker Review of Systems Constitutional: Denies: Fever, Malaise Eyes: Denies: Blurred vision, Vision Change HEENT: Denies: Head Aches, Visual Changes Cardiovascular: Denies: Chest Pain, Palpitations Respiratory: Denies: Cough, Shortness of Breath, Wheezing Gastrointestinal: Denies: Abdominal Pain, Diarrhea, Nausea, Vomiting Genitourinary: Denies: Dysuria, Hematuria Musculoskeletal: Denies: Joint Pain, Muscle pain Skin: Denies: Lesions, Rash Neurological: Denies: Blurred vision, Focal weakness, Headaches Psychiatric: Denies: Anxiety, Depression Endocrine: Denies: Heat/ Cold Intolerance Hematologic/ Lymphatic: Denies: Easy Bruising, Easy Bleeding - Physical Exam Vital Signs Temp Pulse Resp BP Pulse Ox 97.9 F 91 18 147/86 H 100 01/09/19 08:00 01/09/19 08:00 01/09/19 08:00 01/09/19 08:00 01/09/19 08:00 Oxygen Delivery Method Room Air Weight: 227 lb 8.273 oz Body Mass Index (BMI) 40.9 Intake and Output for Last 24 Hours 01/07/19 01/08/19 01/09/19 23:59 23:59 23:59 Intake Total 2248 / 2248 3280 / 3280 Output Total 530 / 530 3000 / 3000 Balance 1718 / 1718 280 / 280 Assessment/Plan All Active Problems (Last Reviewed 01/03/19 @ 16:24 by Lorraine Patrick) Mild preeclampsia (Acute) Abnormal glucose affecting (Acute) UTI in (Acute) Rh negative status during (Acute) (Acute) Previous delivery affecting , antepartum (Acute) Supervision of high-risk (Acute)
--- NOTE | 2019-01-09 11:27 | PCM.PN.OB ---
Subjective: doing well no complaints pain controlled no CP SOB N V ambulating well tolerating po lochia moderate, going well late entry patient seen 01/08/19 745 - Physical Exam General: Alert, Oriented x3 Vital Signs Temp Pulse Resp BP Pulse Ox 97.9 F 91 18 147/86 H 100 01/09/19 08:00 01/09/19 08:00 01/09/19 08:00 01/09/19 08:00 01/09/19 08:00 Oxygen Delivery Method Room Air Weight: 227 lb 8.273 oz Body Mass Index (BMI) 40.9 Intake and Output for Last 24 Hours 01/07/19 01/08/19 01/09/19 23:59 23:59 23:59 Intake Total 2248 / 2248 3280 / 3280 Output Total 530 / 530 3000 / 3000 Balance 1718 / 1718 280 / 280 Medical Necessity - Tobacco Use Smoking Status: Never smoker Assessment/Plan All Active Problems (Last Reviewed 01/03/19 @ 16:24 by Lorraine Patrick) Mild preeclampsia (Acute) Abnormal glucose affecting (Acute) UTI in (Acute) Rh negative status during (Acute) (Acute) Previous delivery affecting , antepartum (Acute) Supervision of high-risk (Acute) s/p LTCS PPD # 1 1. routine post care 2. breast feeding- support given 3. rh negative rhogam prn start labtealol again for preeclampsia 4. rubella immune
--- NOTE | 2019-01-09 11:28 | PCM.PN.OB ---
Subjective: doing well no complaints pain controlled no CP SOB N V ambulating well tolerating po lochia moderate, going well - Physical Exam General: Alert, Oriented x3 Vital Signs Temp Pulse Resp BP Pulse Ox 97.9 F 91 18 147/86 H 100 01/09/19 08:00 01/09/19 08:00 01/09/19 08:00 01/09/19 08:00 01/09/19 08:00 Oxygen Delivery Method Room Air Weight: 227 lb 8.273 oz Body Mass Index (BMI) 40.9 Intake and Output for Last 24 Hours 01/07/19 01/08/19 01/09/19 23:59 23:59 23:59 Intake Total 2248 / 2248 3280 / 3280 Output Total 530 / 530 3000 / 3000 Balance 1718 / 1718 280 / 280 Medical Necessity - Tobacco Use Smoking Status: Never smoker Assessment/Plan All Active Problems (Last Reviewed 01/03/19 @ 16:24 by Lorraine Patrick) Mild preeclampsia (Acute) Abnormal glucose affecting (Acute) UTI in (Acute) Rh negative status during (Acute) (Acute) Previous delivery affecting , antepartum (Acute) Supervision of high-risk (Acute) s/p LTCS PPD # 2 1. routine post care 2. breast feeding- support given 3. rh negative 4. rubella immune
--- NOTE | 2019-01-09 11:29 | PCM.DCCSEC ---
Discharge Diet: No Restrictions Discharge Activity: May Not Drive - for 2 weeks, May not drive while taking narcotic pain medications., May Shower, May Take a Tub Bath - in 7 days May resume sexual activity in: 4-6 weeks Lifting Restrictions: 20 pounds Additional Activity Instructions:: Nothing in the vagina for 4-6 weeks. You may return to work/school in 6 weeks. Call your doctor if your incision/area has: Continuous Slow Oozing, Sudden Increased Bleeding, Increased Pain/ Swelling, Increased Redness, Foul Smelling Discharge Call your doctor if you observe: Fever of 101 or Higher, Using more than one pad per hour - for 2 hours Suture Line Care: Avoid Pulling/Pushing, Avoid Pinching/Bending Cleanse incision/area with: Keep Dressing Clean & Dry Instructions: Discharge Instructions for High Blood Pressure (Hypertension) Additional Instructions: take blood pressures twice daily call physician if over 150/100. fu in 1 week for bp check in office. If you experience any of the following, contact your healthcare provider. Bleeding that soaks a pad every hour for 2 hours Fever 100.4 or higher Unrelieved incision or abdominal pain Swelling, redness, discharge or bleeding from your incision or episiotomy site Your incision begins to separate Problems urinating (including inability to urinate or burning while urinating). Visual changes Severe headache Flu-like symptoms Pain or redness in one of both of your breasts Pain, warmth, tenderness or swelling in your legs, especially the calf area Frequent nausea and vomiting Symptoms of depression or anxiety If you experience any of the following, call 911 or go to the nearest Emergency Room. Chest pain Problems breathing Seizure activity Partial or complete paralysis of a body part, slurred speech, weakness or drooping of the face, or a sudden inability to walk or hold your balance Allergies/Adverse Reactions: Allergies No Known Allergies Allergy (Verified 01/03/19 16:19) Medications to take at Discharge vitamin,calcium,ohnykxri-fdaq-mokuk acid tablet 1 tab PO DAILY 07/15/18 blood pressure monitor kit See Dose Instructions .ROUTE .MEDSUPPLY #1 ea 12/20/18 Acetaminophen [Tylenol] 1,000 mg PO Q8H PRN 12/28/18 Guaifenesin/Dextromethorphan [Mucinex Dm ER 600-30 mg Tablet] 1 ea PO Q12H PRN PRN 12/28/18 Labetalol [Trandate (Beta Eliud)] 200 mg PO BID 12/28/18 Follow-Up: Call to make an appointment with your doctor for an incision check in 1-2 weeks. You will also need a 6 week post- follow up appointment. Test results from this visit will be discussed in further detail at your follow-up appointment, if applicable. Please Follow Up With: Maite Schultz MD - Call to make an appointment for an incision check in 1-2 [phone] When: You will need a post- check in 6 weeks. Primary Care Physician: Tray Cox [Primary Care Provider] -
--- NOTE | 2019-01-09 11:32 | DCINST_ITS ---
Discharge Diet: No Restrictions Discharge Activity: May Not Drive - for 2 weeks, May not drive while taking narcotic pain medications., May Shower, May Take a Tub Bath - in 7 days May resume sexual activity in: 4-6 weeks Lifting Restrictions: 20 pounds Additional Activity Instructions:: Nothing in the vagina for 4-6 weeks. You may return to work/school in 6 weeks. Call your doctor if your incision/area has: Continuous Slow Oozing, Sudden Increased Bleeding, Increased Pain/ Swelling, Increased Redness, Foul Smelling Discharge Call your doctor if you observe: Fever of 101 or Higher, Using more than one pad per hour - for 2 hours Suture Line Care: Avoid Pulling/Pushing, Avoid Pinching/Bending Cleanse incision/area with: Keep Dressing Clean & Dry Instructions: Discharge Instructions for High Blood Pressure (Hypertension) Additional Instructions: take blood pressures twice daily call physician if over 150/100. fu in 1 week for bp check in office. If you experience any of the following, contact your healthcare provider. * Bleeding that soaks a pad every hour for 2 hours * Fever 100.4 or higher * Unrelieved incision or abdominal pain * Swelling, redness, discharge or bleeding from your incision or episiotomy site * Your incision begins to separate * Problems urinating (including inability to urinate or burning while urinating). * Visual changes * Severe headache * Flu-like symptoms * Pain or redness in one of both of your breasts * Pain, warmth, tenderness or swelling in your legs, especially the calf area * Frequent nausea and vomiting * Symptoms of depression or anxiety If you experience any of the following, call 911 or go to the nearest Emergency Room. * Chest pain * Problems breathing * Seizure activity * Partial or complete paralysis of a body part, slurred speech, weakness or drooping of the face, or a sudden inability to walk or hold your balance Allergies/Adverse Reactions: Allergies No Known Allergies Allergy (Verified 01/03/19 16:19) Medications to take at Discharge vitamin,calcium,edopmthe-llee-stcgy acid tablet 1 tab PO DAILY 07/15/18 blood pressure monitor kit See Dose Instructions .ROUTE .MEDSUPPLY #1 ea 12/20/18 Acetaminophen [Tylenol] 1,000 mg PO Q8H PRN 12/28/18 Guaifenesin/Dextromethorphan [Mucinex Dm ER 600-30 mg Tablet] 1 ea PO Q12H PRN PRN 12/28/18 Labetalol [Trandate (Beta Eliud)] 200 mg PO BID 12/28/18 Follow-Up: Call to make an appointment with your doctor for an incision check in 1-2 weeks. You will also need a 6 week post- follow up appointment. Test results from this visit will be discussed in further detail at your follow- up appointment, if applicable. Please Follow Up With: Maite Schultz MD - Call to make an appointment for an incision check in 1-2 [phone] When: You will need a post- check in 6 weeks. Primary Care Physician: Tray Cox [Primary Care Provider] -
== END 2019-01-09 12:20 | disposition home or self-care (01) | DRG 784 ==
PROVIDERS: Admitting Provider Obstetrics & Gynecology; Family Provider Family Medicine; Referring Provider Obstetrics & Gynecology; Visit Provider Obstetrics & Gynecology
PROC: 10D00Z1 Extraction of Products of Conception, Low, Open Approach (ICD-10-PCS; CPT 59514; principal; 2019-01-07 11:45)
DX: O34.211 Maternal care for low transverse scar from previous cesarean delivery (principal); O23.43 Unspecified infection of urinary tract in pregnancy, third trimester; O36.0130 Maternal care for anti-D [Rh] antibodies, third trimester, not applicable or unspecified; O99.810 Abnormal glucose complicating pregnancy; O14.04 Mild to moderate pre-eclampsia, complicating childbirth; Z3A.37 37 weeks gestation of pregnancy; Z37.0 Single live birth; Z87.59 Personal history of other complications of pregnancy, childbirth and the puerperium; Z30.2 Encounter for sterilization
CPT/HCPCS: 85025; 85027; 86850; 86900; 88302; 99218; J7120; A4216; G0378; J2405

== ENCOUNTER → 2020-08-18 14:19 | Outpatient (CLI) | payer OTHER, SELFPAY ==
[2020-08-18 10:54] VITALS: BMI 36.3
[2020-08-24 16:23] LABS: HPV APTIMA, High Risk Negative (Negative)
== END ==
PROVIDERS: Referring Provider Nurse Practitioner Women's Health; Visit Provider Nurse Practitioner Women's Health
DX: Z12.4 Encounter for screening for malignant neoplasm of cervix (principal)
CPT/HCPCS: 87624; 88175; G0145

== ENCOUNTER → 2020-10-29 15:32 | Outpatient (CLI) | payer OTHER, SELFPAY ==
[2020-08-18 10:54] VITALS: BMI 36.3
--- NOTE | 2020-10-29 15:41 | US_ITS ---
STUDY: ULTRASOUND OF THE FEMALE PELVIS - COMPLETE REASON FOR EXAM: Female, 35 years old. Menorrhagia LMP: 10/26/2020 TECHNIQUE: Endovaginal TECHNICAL QUALITY: Adequate. COMPARISON: None. FINDINGS: The uterus is anteverted and is in a midline position. The uterus measures 8.2 x 5.4 x 4.0 cm. Normal uterine cervix. The endometrium measures 6 mm in thickness, and is hyperechoic. There is no demonstrated endometrial mass. There is no demonstrated myometrial mass. The patient does not have an I.U.D. The right ovary is visualized. The right ovary measures 2.0 x 1.8 x 2.7 cm. There is no right ovarian cyst or ovarian mass. There is no visualized right adnexal mass or complex lesion. There is normal arterial and normal venous vascularity. The left ovary is visualized. The left ovary measures 2.3 x 2.2 x 2.0 cm. There are multiple follicles or small cysts. There is normal arterial and normal venous vascularity. There is no fluid in the cul-de-sac. The pre void volume of the bladder was 540 ml. Polycystic ovary disease: No. US/Transvaginal Non- IMPRESSION: Multiple follicles or small cysts in the left ovary. Electronically Signed: Syed Spangler DO at 17:17 EST Tel [phone], Service support ,
--- NOTE | 2020-10-29 15:41 | US_ITS ---
STUDY: ULTRASOUND OF THE FEMALE PELVIS - COMPLETE REASON FOR EXAM: Female, 35 years old. Menorrhagia LMP: 10/26/2020 TECHNIQUE: Endovaginal TECHNICAL QUALITY: Adequate. COMPARISON: None. FINDINGS: The uterus is anteverted and is in a midline position. The uterus measures 8.2 x 5.4 x 4.0 cm. Normal uterine cervix. The endometrium measures 6 mm in thickness, and is hyperechoic. There is no demonstrated endometrial mass. There is no demonstrated myometrial mass. The patient does not have an I.U.D. The right ovary is visualized. The right ovary measures 2.0 x 1.8 x 2.7 cm. There is no right ovarian cyst or ovarian mass. There is no visualized right adnexal mass or complex lesion. There is normal arterial and normal venous vascularity. The left ovary is visualized. The left ovary measures 2.3 x 2.2 x 2.0 cm. There are multiple follicles or small cysts. There is normal arterial and normal venous vascularity. There is no fluid in the cul-de-sac. The pre void volume of the bladder was 540 ml. Polycystic ovary disease: No. US/Pelvic (Non ) IMPRESSION: Multiple follicles or small cysts in the left ovary. Electronically Signed: Syed Spangler DO at 17:17 EST Tel [phone], Service support ,
== END ==
PROVIDERS: Referring Provider Nurse Practitioner Women's Health; Visit Provider Nurse Practitioner Women's Health
DX: N92.0 Excessive and frequent menstruation with regular cycle (principal)
CPT/HCPCS: 76830; 76856

== ENCOUNTER 2021-06-21 13:59 | Observation (INO) | payer OTHER, SELFPAY ==
[2021-06-20 17:04] LABS: Absolute Lymphocyte Count 2.27 X10^3/uL (0.83-4.51); Absolute Neutrophil Count 4.1 X10^3/uL (2.0-7.7); Basophil# 0.01 X10^3/uL; Basophil% 0.1 % (0-1); Eosinophil# 0.08 X10^3/uL; Eosinophils% 1.1 % (0-5); Hematocrit 41.2 % (37-47); Hemoglobin 14.1 g/dL (12.0-15.0); Lymphocyte # 2.27 X10^3/ul (0.83-4.51); Lymphocyte % 32.5 % (19-41); Mean Corp Hgb Conc 34.2 g/dL (32-36); Mean Corpuscular Volume 87.7 fL (81-99); Mean Platelet Vol. 10.1 fl (6.2-12.0); Monocyte# 0.52 X10^3/uL; Monocyte% 7.4 % (0-10); NRBC Flagged by Analyzer 0 % (0-5); Neutrophil # 4.09 X10^3/uL (2.7-7.7); Neutrophil % 58.8 % (47-70); Platelet Count 264 K/mm3 (150-450); RBC Distribution Width CV 12.2 % (11.6-14.6); RBC Distribution Width SD 39.7 fl (35.1-43.9)
[2021-06-20 17:34] LABS: Magnesium 2.1 mg/dL (1.6-2.6)
[2021-06-20 17:44] LABS: Thyroid Stim Hormone (TSH) 2.08 uIU/mL (0.358-3.74)
[2021-06-21] VITALS (17 sets, daily range): BP systolic 109–147; BP diastolic 70–95; PULSE 56–81; RESP 14–18; TEMP 36.1–37.1; O2SAT 97–100; BMI 36.7; BMI 37.8
--- NOTE | 2021-06-21 02:56 | PCM.HP.BLA ---
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 Is patient in pain?: Yes Allergies No Known Allergies Allergy (Verified 04/22/21 09:58) Is last menstrual period known: No Post menopausal: No Patient : No : No PFSH Medical History Abnormal glucose affecting UTI in Surgical History delivery delivered History of cholecystectomy Family History Grandmother Diabetes Vaginal cancer Father Hypertension Grandfather Colon cancer Social History Smoking Status: Never smoker alcohol intake: never substance use type: does not use caffeine: Yes what type of physical activity do you participate in: walking seatbelt use: always do you feel safe at home: Yes additional social history: [facility] 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 she is having AUB failed medical management. Female Reproductive History Menopausal Symptoms: No night sweats Pregancy History 4 Elective abortions Hx Para 3 Spontaneous abortions Hx # Term Pregnancies Ectopic pregnancies Hx # Pregnancies Multiple births # of living children 3 Past Pregnancies Del. Date Name GA/Weeks Outcome Route Bth Weight Infant Gen Labor Lgth Anesthesia Del Locatn Provider FOB Unknown 2010 Daly 34 live - Female Dr. Hollis Unknown 2012 Espn 36 live - full term Male Telma 01/07/19 Michael 37 live - full term 6lbs 14oz Male spinal [facility] R[facility] Delivery Date: placenta previa Maite Schultz Delivery Date: heart rate emergency Maite Schultz Delivery Date: 01/07/19 pre-e Leah,Tatyana ROS Const Constitutional: Denies fatigue, night sweats, weight gain or weight loss ENT ENT: Reports system reviewed and no additional complaints, except as documented Cardio Card: Denies chest pain Resp Resp: Denies cough or dyspnea GI GI: Reports as per HPI; Denies abdominal pain, constipation, nausea or vomiting : Denies nipple discharge, urinary frequency, urinary incontinence, urinary hesitancy, urinary urgency, vaginal discharge, vaginal dryness, vaginal odor or vaginal pruritus Musc Musc: Denies arthralgias, back pain or muscle weakness Skin Skin/Breast: Denies alopecia, change in hair, dry skin, breast mass, breast pain, breast skin changes or nipple discharge Neuro Neuro: Reports system reviewed and no additional complaints, except as documented Psych Psych: Reports system reviewed and no additional complaints, except as documented Endo Endo: Denies cold intolerance, excessive sweating, heat intolerance or polydipsia Hermilo/Lymph Hematologic/Lymphatic: Denies easy bleeding, Denies easy bruising and Denies lymphadenopathy Exam Const General: cooperative, healthy appearing, comfortable, no acute distress and well developed Orientation: alert HENAK Head: normal to inspection and normocephalic Ears: hearing grossly normal bilaterally and external ears normal Nose: external nose normal and nares normal Face and sinus: normal facial exam Neck Neck: normal visual inspection and no lymphadenopathy Thyroid: thyroid normal Chest Chest palpation & inspection: normal inspection of the chest Resp Effort & Inspection: normal respiratory effort Auscultation: clear to auscultation bilaterally Cardio Rate: regular rate Rhythm: regular rhythm Heart Sounds: S1 normal and S2 normal GI Inspection: normal to inspection and non-distended Palpation: soft and no hepatosplenomegaly Musc Other: gross motor intact no deficits, full bilateral strength Skin General: no rashes or lesions noted Neuro General: patient alert, patient awake, moves all extremities and no focal motor deficits Motor: muscle tone normal throughout Extrem General: normal to inspection and no pedal edema Psych Appearance: grossly normal Mental Status: mental status grossly normal Affect: normal affect Speech and Movement: speech and movement normal Coding Level of Care Code No Charge Diagnoses Menorrhagia with regular cycle N92.0 Assessment and Plan Assessment and Plan (1) Menorrhagia with regular cycle: Status: Acute Comment: Normal US and EMB. Failed lysteda and IUD. plan LAVH BS possible cyst Orders: Orders: Thyroid Stim Hormone (TSH) 06/06/21 CBC W/Diff, Automated 06/06/21 Plan - Dr. Maite Schultz MD: After discussing the patient's diagnosis and treatment plan options, patient wishes to proceed with surgical management. I have discussed with the patient the risks, benefits, and alternatives of the procedure which include but are not limited to risks of anesthesia, bleeding, infection, possible damage to bowel, bladder, or surrounding vasculature which could lead to additional surgery to evaluate any complications. Patient agrees to procedure and wishes to proceed. ACOG/uptodate references given for additional information regarding procedure. UPDATE- I have seen the patient and performed any clinically relevant updates to the history and physical exam. Maite Schultz MD
[2021-06-21 06:08] LABS: Internal QC Validated? YES +Cl - CLEAR BKGD; Pregnancy, Urine Negative Negative
[2021-06-21] MEDS: Phenazopyridine 95 MG Tablet 190 MG PO (06:31)
[2021-06-21] MEDS: Acetaminophen 500 MG Tablet 1000 MG PO ×3 (06:31→18:03)
[2021-06-21] MEDS: Celecoxib 200 MG Capsule 400 MG PO (06:31)
[2021-06-21] MEDS: Gabapentin 600 MG Tablet PO (06:31)
[2021-06-21] MEDS: Enoxaparin 40 MG/0.4 ML Syringe SC (06:32)
[2021-06-21] MEDS: dexAMETHasone 10 MG/ML Vial 8 MG IV (06:32)
[2021-06-21] MEDS: Lactated Ringers 1,000 ML 40 ML IV (06:32)
[2021-06-21] MEDS: Bupivacaine 0.25% 30 ML Vial (06:56)
[2021-06-21] MEDS: Vasopressin 20 UNITS/ML Vial (06:56)
[2021-06-21] MEDS: Cefazolin 2 GM in 0.9% Normal Saline 100 ML IV (07:30)
--- NOTE | 2021-06-21 07:30 | HYST_PTH ---
PATIENT: OLU SANTOS LOC: [facility]3 U#:[id number] AGE/SX: 36/F ROOM: WA320 RE06/21/[address]: Dr. Maite Schultz MD : 1985 BED: 1 DIS: 06/22/2021 SPEC #: [id number] RECD: 06/21/21 09:33 STATUS: KORINA CAMARAAren #: [id number] JO-ANN: 06/21/21 07:[address]: Maite Schultz DEPT: SURGICAL PATHOLOGY RECD BY: Yeni Mari ENTERED: 06/21/21 10:42 SP TYPE: HYSTERECT OTHR DR: Tray Cox Tissues: Uterus, NOS Procedures: Surgery Specimen Level V HEADER OPERATION: ERAS, hysterectomy, LAVH, salpingectomy PRE-OP DIAGNOSIS: Menorrhagia TISSUE SUBMITTED: Uterus, cervix, bilateral tubes MICROSCOPIC DIAGNOSIS Uterus, cervix and bilateral fallopian tubes, hysterectomy and bilateral salpingectomy: Cervix ? mild chronic cystic cervicitis. Endometrium ? consistent with exogenous hormone effect. Myometrium ? focal minimal superficial adenomyosis. Bilateral fallopian tubes - no pathologic diagnosis. T-shaped IUD (gross only). SJ:rg 06/22/2021 MICROSCOPIC DESCRIPTION Slides are reviewed. GROSS DESCRIPTION Received in fixative is one container labeled with the patient's name and designated uterus, cervix and bilateral fallopian tubes. The specimen consists of a hysterectomy specimen consisting of uterus with cervix and attached bilateral fallopian tubes. The uterus with cervix weighs 82 gm and measures 9 x 6 x 4 cm. The serosal surface is jordan, glistening. The ectocervical mucosa is unremarkable. The external os is circular in contour and covered with hemorrhagic mucoid material. The endocervical canal measures 3.5 cm in length and the endocervical mucosa is jordan, glistening and unremarkable. The triangular endometrial cavity measures 4.5 cm in length and 2 cm in width. The endometrial cavity contains a white T-shaped intrauterine device. The horizontal portion of the IUD measures 3.5 cm in width and the vertical portion measures 3 cm in width. A two-prong suture is attached which measures 6.5 cm in length. The IUD device is well positioned in the endometrial cavity. The endometrium is jordan, glistening without any mass lesion and measures up to 0.2 cm in thickness. It is partially denuded. Sections of the uterine wall do not reveal any mass lesion and measures up to 2 cm in thickness. The right fallopian tube measures 3.5 cm in length and 0.5 cm in diameter. The fimbrial end is identified. Sections reveal unremarkable cut surfaces. The left fallopian tube is similar appearance to right and measures 4 cm in length and 0.4 cm in diameter. Offal Icer Poultry sections are submitted in eight cassettes as follows: 1 - anterior cervix, 2??posterior cervix, 3 & 4 - anterior uterine wall, 5 & 6 - posterior uterine wall, 7 - right fallopian, 8 - left fallopian tube. / KRISTIAN:emanuel 06/21/21 TC:5 CPT: 17736
[2021-06-21 07:31] LABS: Bedside Glucose 91 mg/dL (70-110)
[2021-06-21] MEDS: Ondansetron 4 MG/2 ML Vial IV (08:53)
--- NOTE | 2021-06-21 09:18 | PCM.OPRPT ---
Problems Associated Problem List Diagnoses (1) Menorrhagia with regular cycle: Report of Operation Date of Procedure: 06/21/21 Pre-Operative Diagnosis: see A/P Post-Operative Diagnosis: same Surgery/Procedure Performed:: HALIE Description of Surgical Findings:: Vesicouterine adhesions normal ovaries uterus and tubes title one teacher: Jessica Velazquez Type of Anesthesia: General Special Medications: None Specimen's removed: uterus, tubes Drains: gutierrez Estimated Blood Loss (mL): 200 Fluids Replaced: crystalloid Description of Procedure: Patient received preoperative antibiotics and SCDs were on preoperatively. Patient was taken back to the operating room and placed in the dorsal lithotomy position. General anesthesia was induced and patient was prepped and draped in normal sterile fashion. aventicular uterine manipulator was placed inside the uterus and Gutierrez catheter placed in the bladder. The umbilicus was grasped with towel clamps and an intraumbilical incision was made after injecting with quarter percent Marcaine and a Veress needle entered into the abdomen confirmed to be intra-abdominal with a low opening pressure. Abdomen was insufflated with CO2 gas and the Veress needle removed and the 5 mm trocar was placed under direct visualization without complication. Right and left lower quadrants were transilluminated and injected with quarter percent Marcaine and 5 mm ports placed under direct visualization. Pelvis was well visualized see operative findings for additional information. Bilateral fallopian tubes were identified and transected with the LigaSure device across the mesosalpinx to the level of the utero-ovarian ligament which was also transected with the LigaSure device. Vesicouterine adhesions were taken down with the LigaSure device. The broad ligament was opened up by transecting the round ligament bilaterally and skeletonizing the uterine vessels bilaterally and creating a bladder flap using the LigaSure device. The uterine arteries were transected bilaterally with good visualization of the bladder and the ureters were seen to be inferior lateral to the operative area. Attention was then paid to the vaginal portion of the procedure and the cervix was grasped with Jarocho clamps and circumferentially injected with dilute vasopressin. A circumferential incision was made and the vaginal mucosa was mobilized off posteriorly and the cul-de-sac entered into sharply and a longneck speculum placed. The anterior cul-de-sac was then identified and entered into sharply. The uterosacral ligaments were clamped cut and suture ligated with 0 Monocryl bilaterally followed by the cardinal ligaments which were clamped cut and suture ligated bilaterally with 0 Monocryl. The uterus serially descended and was removed without difficulty. Pelvic sidewall pedicles were checked and noted to have excellent hemostasis. The vaginal mucosa was reapproximated incorporating the posterior peritoneum. This was reapproximated using 0 Vicryl [id number] sutures. Excellent hemostasis was noted. The pelvis and cul-de-sac were well visualized and no significant active bleeding noted. Pressure was taken down and the areas visualized and noted of excellent hemostasis. All ports were removed under direct visualization without complication and the abdomen was desufflated of air. The instruments were removed from the abdomen and the vaginal sweep was negative. Port sites on the abdomen were closed with 4-0 Monocryl interrupted sutures and Steri's and windows were applied. She was awoken and taken recovery in stable condition. Grafts/Implants Used: none Complications none Admit VTE Documentation VTE Present on Admission: No VTE Mechan Device Prophylaxis: SCD's VTE Pharm Prophylaxis ordered?: Yes Procedures Urinary/Genital 52xxx-59xxx: 14230 LAVH+BS/O <250gr Uterus
--- NOTE | 2021-06-21 09:25 | PCM.DC ---
Discharge Instructions Diet Discharge Diet: No restrictions Activity May resume sexual activity in: 6 weeks Weight Bearing Status: Full weight bearing Dressing / Incision Call your doctor if your incision/area has: Continuous Slow Oozing, Sudden Increased Bleeding, Increased Pain/ Swelling, Increased Redness and Foul Smelling Discharge Call your doctor if you observe: Fever of 101 or Higher, Using more than 1 pad per hour, Shortness of breath, Chest pain and Uncontrolled pain Suture Line Care: Avoid Pulling/Pushing and Avoid Pinching/Bending Remove Dressing in: 1 week (if present) Cleanse incision/area with: Soap & Water and Keep Dressing Clean & Dry Follow Up Care Please Follow Up With: Maite Schultz MD When: Call to make an appointment with your doctor for a postop visit in 2 and 6 weeks. Test Results: Test results from this visit will be discussed in further detail at your follow-up appointment, if applicable. Discharge Plan Admission Primary Reason for Your Visit: hysterectomy Attending Provider: Maite Schultz Primary Care Provider: Tray Cox Discharge Orders/Prescriptions Prescriptions: No Action NK RF: 0 Referrals / Follow Up: Tray Cox [Primary Care Provider] - Disposition Disposition (needs filled in before D/C Order can be placed): Home, Self Care
[2021-06-21] MEDS: Lactated Ringers 1,000 ML 70 ML IV (09:46)
[2021-06-21] MEDS: Ketorolac 30 MG/ML Syringe IV ×2 (10:39→18:02)
[2021-06-21 12:39] LABS: Hematocrit 38.4 % (37-47); Mean Corp Hgb Conc 33.9 g/dL (32-36); Mean Corpuscular Volume 88.5 fL (81-99); Mean Platelet Vol. 10.3 fl (6.2-12.0); Platelet Count 237 K/mm3 (150-450); RBC Distribution Width CV 12.2 % (11.6-14.6); RBC Distribution Width SD 39.5 fl (35.1-43.9); Red Blood Count 4.34 M/mm3 (4.2-5.4); White Blood Count 13.5 K/mm3 (4.4-11.0)
[2021-06-21] MEDS: Lactated Ringers 1,000 ML 999 ML IV (13:05)
--- NOTE | 2021-06-21 13:09 | SUR.PHASEII ---
cbc called to dr. Schultz and report. Order recieved to dc scopolamine patch and iv bolus.
--- NOTE | 2021-06-21 13:56 | SUR.PHASEII ---
pt. up to bathroom states feeling godd. back from bathroom states still a little dizzy and nauseated had an emesis. dr. fairchild who gave an admit order.
[2021-06-21] MEDS: Docusate Sodium 100 MG Capsule PO (20:21)
--- NOTE | 2021-06-21 20:29 | PCS.PANDOC ---
PANDEMIC DOCUMENTATION INITIATED: Date: 04/11/2021 Time: 190
[2021-06-22] VITALS: BP 128/71; PULSE 71; RESP 16; TEMP 37; O2SAT 95
[2021-06-22] MEDS: Ketorolac 30 MG/ML Syringe IV ×3 (00:34→12:34)
[2021-06-22] MEDS: 0.9% Saline Lock 10 ML Syringe IV ×2 (00:34→05:59)
[2021-06-22] MEDS: Acetaminophen 500 MG Tablet 1000 MG PO ×3 (00:34→13:47)
[2021-06-22 05:30] VITALS: BP 134/76; PULSE 72; RESP 16; TEMP 37; O2SAT 98
[2021-06-22 07:59] VITALS: O2SAT 98
--- NOTE | 2021-06-22 08:01 | PN.OBGYN_ITS ---
Subjective Subjective patient recovering well, denies CP, SOB, N, or V. patient is ambulating, voiding ,tolerating adequate po, and pain is controlled with oral medications. Objective Data Objective Data Vital Signs: Vital Signs Temp Pulse Resp BP Pulse Ox 98.6 F 72 16 134/76 H 98 06/22/21 05:30 06/22/21 05:30 06/22/21 05:30 06/22/21 05:30 06/22/21 07:59 Oxygen Flow Rate (L/min) 6 Oxygen Delivery Method Room Air Weight: 207 lb Body Mass Index (BMI) 37.8 Intake & Output: Intake and Output for Last 24 Hours 06/20/21 06/21/21 06/22/21 23:59 23:59 23:59 Intake Total 2887.5 / 2887.5 Output Total 2550 / 3550 1000 / 1000 Balance 337.5 / -662.5 -1000 / -1000 Lab / Micro Data Result Diagrams: 06/21/21 12:00 Labs: Laboratory Results - last 24 hr 06/21/21 12:00: WBC 13.5 H, RBC 4.34, Hgb 13.0, Hct 38.4, MCV 88.5, MCH 30.0, MCHC 33.9, RDW Std Deviation 39.5, RDW Coeff of [place] 12.2, Plt Count 237, MPV 1 0.3 Micro: Microbiology 06/20/21 16:21 Interface Orders SARS-CoV-2 Antigen (Rapid) - Final Physical Exam Const alert, oriented x3 and no apparent distress Resp normal respiratory effort GI soft to palpation and non-distended Inspection: incision other (dressing dry and intact) Narrative: Minimal drainage on peripad Assessment & Plan (1) S/P laparoscopic assisted vaginal hysterectomy (LAVH): COMMENT: JULIO AUB lavhbs PLAN: patient is s/p LAVH BS POD 1 1. routine ERAS protocol postop care- increase ambulation, encourage oral intake and oral control of pain. lovenox and scds for dvt prophylaxis, patient stable for discharge to home.
[2021-06-22] MEDS: Docusate Sodium 100 MG Capsule PO (09:28)
[2021-06-22] MEDS: Enoxaparin 40 MG/0.4 ML Syringe SC (09:28)
[2021-06-22 09:35] VITALS: BP 137/88; PULSE 60; RESP 14; TEMP 36.8; O2SAT 100
== END 2021-06-22 13:55 | disposition home or self-care (01) ==
LOC: SDC 16:14 → MS3 16:14
PROVIDERS: Anesthesiology; Admitting Provider Obstetrics & Gynecology; Referring Provider Obstetrics & Gynecology; Visit Provider Obstetrics & Gynecology
PROC: 0UT9FZZ Resection of Uterus, Via Natural or Artificial Opening With Percutaneous Endoscopic Assistance (ICD-10-PCS; CPT 58552; principal; 2021-06-21 07:05)
DX: N92.0 Excessive and frequent menstruation with regular cycle (principal); N80.0 Endometriosis of uterus; N72 Inflammatory disease of cervix uteri
CPT/HCPCS: 00944; 58552; 36415; 81025; 82962; 83735; 84443; 85025; 85027; 86850; 86900; 86901; 87426; 88307; 94762; 96372; 96374; 96376; 99218; 99251; C9803; J7120; A4216; G0378; G0463; J2405

== ENCOUNTER → 2021-07-18 16:53 | Outpatient (CLI) | payer OTHER, SELFPAY | PROVIDERS: Referring Provider Nurse Practitioner Women's Health; Visit Provider Nurse Practitioner Women's Health | DX: R30.9 Painful micturition, unspecified (principal); N76.0 Acute vaginitis | CPT/HCPCS: 87070; 87086; 87088; 87205 ==

== ENCOUNTER 2021-09-21 16:42 | Outpatient (CLI) | payer OTHER, SELFPAY | END 2021-09-21 23:59 | disposition short-term general hospital (02) | LOC: LABSPEC 16:43 | PROVIDERS: Visit Provider Nurse Practitioner Women's Health | DX: R30.9 Painful micturition, unspecified (principal) | CPT/HCPCS: 87086; 87088 ==